=== PATIENT | female | born 1945 | race Caucasian/White ===

== ENCOUNTER 2016-07-31 07:58 | Inpatient (IN) | payer MEDICARE ==
--- NOTE | 2016-07-25 22:18 | HP ---
HISTORY AND PHYSICAL: DATE OF ADMISSION/SURGERY: 07/31/16 PROCEDURE: Right total hip arthroplasty. CHIEF COMPLAINT: Right hip osteoarthritis. HISTORY OF PRESENT ILLNESS: Ms. Quevedo is a 71-year-old female with chronic right hip pain. She can no longer walk more than half a block, standing up from a sitting position is difficult and standing for a prolonged amount of time without severe pain is difficult. Her pain is made mildly better with antiinflammatories and pain pills. She has tried physical therapy, which she failed and she would like to proceed with a right total hip replacement. PAST MEDICAL HISTORY: 1. The patient has a history of COPD. 2. Hypercholesterolemia. 3. Osteoarthritis. 4. Anxiety. 5. Obesity. PAST SURGICAL HISTORY: 1. Cholecystectomy. 2. Arm or elbow surgery. 3. Rotator cuff repair. MEDICATIONS: 1. Pravastatin sodium 10 mg 1 by mouth every day. 2. Omeprazole 1 by mouth every day. 3. Hydrochlorothiazide 12.5 mg. 4. Vitamin D3 Ultra Strength 5000 units 1 by mouth every day. 5. Vitamin B12 1000 mcg 1 by mouth every day. 6. Venlafaxine 75 mg 1 by mouth every day. ALLERGIES: The patient is allergic to SULFA ANTIBIOTICS and TRICOR. FAMILY HISTORY: Maternal mother has cancer and rheumatoid arthritis. Siblings have hypertension. SOCIAL HISTORY: The patient is a former smoker and she smoked for 40 years at 1 - 1/2 packs per day resulting in a [id number]-elny smoking history. She has been off smoking for 12 years now. She lives with her spouse. REVIEW OF SYSTEMS: General: The patient denies any fevers, chills, or night sweats. No known anesthesia problems. HEENT: The patient denies any headache , lightheadedness, or syncopal episodes. Integument: The patient denies any abrasions, lesions, or open wounds. Cardio: The patient denies any hypertension, chest pain, or palpitations. Pulmonary: The patient denies any shortness of breath with exertion, chronic cough, or COPD. GI: The patient denies any nausea, vomiting, diarrhea, or constipation. : The patient denies any nocturia, urinary frequency, urinary urgency, history of UTI's or kidney problems. MSK: The patient complains of right hip pain that extends into her groin and into her thigh. Neuro: The patient denies any paresthesias, numbness, history of seizures, stroke, or epilepsy. Endocrine: The patient denies any diabetes or thyroid issues. Hematologic: The patient denies any bleeding or anemia. PHYSICAL EXAMINATION GENERAL: The patient is awake, alert, and oriented, in no acute distress. Appropriate mood and affect. CARDIAC: Regular rate and rhythm with normal S1 and S2. No appreciable S3, S4. No murmurs, rubs, or gallops. No edema. PULMONARY: Lungs are clear to auscultation in all lung tucker. No wheezes, rales, or rhonchi. ABDOMEN: Positive bowel sounds in all 4 quadrants, was soft and nontender to palpation. MSK: Right lower extremity, the patient's skin is intact. No palpable masses or lymph nodes. Tenderness to palpation along the greater trochanter positive groin pain. Internal rotation and external rotation of the hip reproduced groin pain. She has an antalgic gait. 5/5 ankle dorsiflexion and plantar flexion. Strength: Full sensation to light touch in all nerve distributions with a 2+ dorsalis pedis pulse. LABORATORY DATA: Multiple views of the hip were reviewed today and found to be acceptable for the right total hip arthroplasty, shows severe end-stage osteoarthritis with obliteration of the joint space. ASSESSMENT: Right hip osteoarthritis severe, undergoing a right hip total arthroplasty on 07/31/16. PLAN: The patient is scheduled to undergo a right total hip arthroplasty. She will return to the office in 10 to 14 days postoperative for followup and suture removal. A prescription for Percocet 5/325, warfarin 2 mg, and Colace 100 mg was e- prescribed to the patient's pharmacy for postoperative pain management. EMILIE VERNON [id number]/[facility] #: [id number] LIDIA
[~2016-07-31 07:58] MED LIST: Dexamethasone IV* 4 MG/ML 1 ML (4 MG) IV SLOW PU ONE; Famotidine IV* 10 MG/ML 2 ML (20 mg) IV ONE; Scopolamine 1.5 mg* PATCH TRANSDERM ONE
[2016-07-31] MEDS ORDERED: ceFAZolin 2 GM PREMIX(*) 2 GM/50 ML BAG IVPB ONE (09:39)
[2016-07-31] MEDS ORDERED: Famotidine IV* 10 MG/ML 2 ML (20 mg) ONE (09:39)
[2016-07-31] MEDS ORDERED: Dexamethasone IV* 4 MG/ML 1 ML (4 MG) ONE (09:39)
[2016-07-31] MEDS ORDERED: Scopolamine 1.5 mg* PATCH ONE (09:39)
[2016-07-31] MEDS ORDERED: Buffered Lidocaine 0.9% SYRIN* 5 ML/SYR SYRINGE ONE (10:13)
[2016-07-31] MEDS ORDERED: Bupivacaine 0.5% SDV PF* 30 ML VIAL ONE (11:19)
[2016-07-31] MEDS ORDERED: Morphine PF AMP (0.5MG/ML)* 5 MG/10 ML AMP ONE (11:20)
[2016-07-31] MEDS ORDERED: fentaNYL* 50 MCG/ML 2 ML VIAL (100 MCG VIAL) ONE ×3 (11:20→16:41)
[2016-07-31] MEDS ORDERED: Midazolam* 1 MG/ML 5 ML VIAL (5 MG) ONE (11:20)
[2016-07-31] MEDS ORDERED: oxyCODONE TAB* 5 MG TAB PO PRN ×3 (11:31→15:43)
[2016-07-31] MEDS ORDERED: PROCHLORPERAZINE INJ 5 MG/ML 2 ML VIAL IV PRN (11:31)
[2016-07-31] MEDS ORDERED: fentaNYL* 50 MCG/ML 2 ML VIAL (100 MCG VIAL) IV PRN (11:31)
[2016-07-31] MEDS ORDERED: Acetaminophen IV 1GM/100ML * 100 ML IVPB ONE (11:31)
[2016-07-31] MEDS ORDERED: Rocuronium* 10 MG/ML VIAL ONE (12:42)
[2016-07-31] MEDS ORDERED: EPHEDrine (Pressors)* 50 MG/ML VIAL ONE ×2 (13:19→15:17)
[2016-07-31] MEDS ORDERED: Phenylephrine IV* 40 MCG/ML 10 ML SYRINGE ONE (13:37)
[2016-07-31] MEDS ORDERED: Phenylephrine INJ* 10 MG/ML 1 ML VIAL (10 MG) ONE (13:37)
[2016-07-31] MEDS ORDERED: Lidocaine 2% EPI 1:200000 MPF* 20 ML VIAL ONE (13:55)
[2016-07-31] MEDS ORDERED: Ondansetron INJ* 2 MG/ML VIAL ONE (14:20)
--- NOTE | 2016-07-31 14:47 | RAD ---
HISTORY: Right total hip replacement COMPARISONS: June 23, 2016 VIEWS: 1, portable intraoperative view of the pelvis performed at 1:12 PM FINDINGS: Single portable intraoperative view of the pelvis performed during hip arthroplasty demonstrates a right hip arthroplasty, with temporary femoral sizing component IMPRESSION: LIMITED PORTABLE INTRAOPERATIVE VIEW OF THE PELVIS DURING RIGHT HIP ARTHROPLASTY
[2016-07-31] MEDS ORDERED: Acetaminophen IV 1GM/100ML * 100 ML ONE (15:12)
[2016-07-31] MEDS ORDERED: Ondansetron TAB* 4 MG PO PRN (15:32)
[2016-07-31] MEDS ORDERED: diPHENhydraMINE IV* 50 MG/ML 1 ml VIAL (BENADRYL) IV PRN (15:32)
[2016-07-31] MEDS ORDERED: diPHENhydraMINE PO* 25 MG PO PRN (15:32)
[2016-07-31] MEDS ORDERED: Morphine INJ* 10 MG/ML 1 ML SYRINGE IV PRN (15:32)
[2016-07-31] MEDS ORDERED: Polyethylene Glycol 3350* 17 GM PACKET PO PRN (15:37)
[2016-07-31] MEDS ORDERED: Bisacodyl SUPP* 10 MG SUPP PR PRN (15:37)
[2016-07-31] MEDS ORDERED: Nalbuphine* 20 MG/ML 1 ML VIAL IV PRN (15:43)
[2016-07-31] MEDS ORDERED: Ondansetron INJ* 2 MG/ML VIAL IV PRN (15:43)
[2016-07-31] MEDS ORDERED: Naloxone* 0.4 MG/ML 1 ML VIAL IV PRN (15:43)
[2016-07-31] MEDS ORDERED: Lactated Ringers 500 ml BAG* 500 ML IV PRN (15:46)
[2016-07-31] MEDS ORDERED: EPHEDrine (Pressors)* 50 MG/ML VIAL IV PUSH PRN (15:46)
[2016-07-31] MEDS ORDERED: PROCHLORPERAZINE INJ 5 MG/ML 2 ML VIAL ONE (15:47)
[2016-07-31] MEDS ORDERED: Ropivacaine* 300 MG in NS 0.9% 250 ML* 240 ML EPIDURAL SCH (16:00)
[2016-07-31] MEDS ORDERED: Pravastatin (NF) 20 MG TAB PO SCH (17:00)
[2016-07-31] MEDS ORDERED: Warfarin TAB(*) 6 MG PO ONE (17:00)
--- NOTE | 2016-07-31 17:05 | RAD ---
Indication: Right total hip replacement. 2 views of the right hip demonstrates right hip replacement in satisfactory position. No loosening is noted. IMPRESSION: Right hip replacement in satisfactory position.
--- NOTE | 2016-07-31 18:12 | CONS ---
HOSPITAL MEDICINE CONSULTATION REPORT: DATE OF CONSULT: 07/31/16 ATTENDING PHYSICIAN: Lavern Canales MD. CONSULTING PHYSICIAN: Sage Estrada MD (dictation provided by Lexus Navarro NP ). CHIEF COMPLAINT: Right hip pain, status post right total hip arthroplasty. REASON FOR CONSULTATION: Medical comanagement. HISTORY OF PRESENT ILLNESS: Ms. Quevedo is a 71-year-old female with a past medical history of COPD, high cholesterol and lower extremity edema, who presented to the hospital today for a planned right total hip arthroplasty. Please see the dictated H and P from Dr. Canales for complete details. In brief, the patient had failed medical management and opted for surgical intervention today. Ms. Quevedo states that she was feeling well before coming into the hospital for the surgery. She has had no recent illnesses. She denies any chest pain, shortness of breath, nausea, abdominal pain. Her bowels have been moving normally. PAST MEDICAL HISTORY: 1. History of COPD. 2. Hypercholesterolemia. 3. Osteoarthritis. 4. Anxiety. 5. Obesity. PAST SURGICAL HISTORY: 1. Cholecystectomy. 2. Rotator cuff repair. 3. Arm surgery. MEDICATIONS: Outpatient are: 1. Pravastatin 10 mg daily. 2. Omeprazole 1 tab p.o. daily. 3. Hydrochlorothiazide 12.5 mg p.o. daily. 4. Vitamin D3 5000 units p.o. daily. 5. Vitamin B12 1000 mcg p.o. daily. 6. Venlafaxine 75 mg daily. ALLERGIES: To SULFA ANTIBIOTICS and TRICOR. FAMILY HISTORY: The patient states her mother is alive and well at age 90 and has history of arthritis. Father at 90 of old age. SOCIAL HISTORY: The patient is a former smoker but has quit. She denies any alcohol or drug use. She states her , Chang, would be the healthcare proxy. REVIEW OF SYSTEMS: A 14-point review of systems was completed with Ms. Quevedo and all those not mentioned above are negative. PHYSICAL EXAM: Vital Signs: Temperature 98.4, heart rate 94, respiratory rate 16, O2 saturation 95% on room air, blood pressure 140/79. General: Ms. Quevedo is lying in the bed in the PACU. She is in no acute distress. Neuro: She is alert. She is oriented x3. She moves all extremities equally. There is no facial asymmetry or focal weakness. Extraocular movements are intact. Heart : S1, S2. No murmur, rub, or gallop and regular. Lungs are clear to auscultation bilaterally with no accessory muscle use and good aeration. The abdomen is soft, nontender with bowel sounds positive x4. Extremities: No cyanosis or edema. Skin is intact. Incision on the right hip was not assessed as it is immediately postop. DIAGNOSTIC STUDIES/LAB DATA: Preoperatively, WBC 8.1, hemoglobin 13.4, hematocrit 40, platelet count 233,000. Sodium 137, potassium 4.2, chloride 99, serum bicarbonate 31, BUN 18, creatinine 0.90, glucose 101. ASSESSMENT: Ms. Quevedo is a 71-year-old female with a past medical history of chronic obstructive pulmonary disease, high cholesterol, and anxiety who presents today to the hospital with need for an elective right total hip arthroplasty. Our recommendations are as follows: 1. Right total hip arthroplasty. Management will continue to be per the orthopedic services team. She will have PT and OT. She will have pain medications p.r.n. with the bowel regimen and we will monitor H and H closely. 2. Lower extremity edema. The patient reports being on low dose hydrochlorothiazide chronically for lower extremity edema which she reports has been helpful. Plan to hold that today. It can resumed in the perioperative period if she is taking in adequate oral intake. 3. Gastroesophageal reflux disease. Continue omeprazole. 4. Hypercholesterolemia. The patient can continue atorvastatin as substitute for pravastatin. 5. DVT prophylaxis with Lovenox and warfarin per Ortho. 6. Disposition to surgical floor. TIME SPENT: Approximately 40 minutes were spent on the consultation of this patient, more than half time spent with the patient at the bedside reviewing the events leading up to this hospitalization, performing the physical examination, and reviewing my plan of care. LEXUS NAVARRO NP [id number]/[facility] #: [id number] LIDIA
[2016-07-31] MEDS: Magnesium Hydroxide LIQ* 30 ML UDC PO SCH (21:19)
[2016-07-31] MEDS: ceFAZolin VIAL(*) 1 GM in NS 0.9% 50 ML* 50 ML IVPB SCH (21:20)
[2016-07-31] MEDS: Docusate CAP* 100 MG PO SCH (21:20)
[2016-07-31] MEDS: Acetaminophen TAB* 325 MG PO SCH (23:47)
[2016-08-01] MEDS: ceFAZolin VIAL(*) 1 GM in NS 0.9% 50 ML* 50 ML IVPB SCH ×2 (05:12→12:14)
--- NOTE | 2016-08-01 05:43 | OP ---
OPERATIVE REPORT: DATE OF OPERATION: 07/31/16 DATE OF : 47 SURGEON: Lavern Canales MD PRODUCTION MINER: EMILIE Belcher Ms. Olmedo did help throughout the procedure with preparation of the leg, wound retraction, manipulation of the hip, and wound closure. ANESTHESIOLOGIST: Dr. Gonzalez. ANESTHESIA: Spinal with general. 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 OPERATIVE PROCEDURE: Right total hip arthroplasty. INDICATIONS: Ms. Quevedo is a 71-year-old female with years of increasing severe right hip pain. She failed conservative treatment with antiinflammatories, pain medications, ambulatory assistive devices, and physical therapy. Radiographs confirmed severe arthritis with near protrusio. CT scan confirmed this. She elected to undergo right total hip arthroplasty due to continued pain and decreased quality of life. Informed consent was obtained from the patient. She understood the risks of procedure included, but were not limited to, bleeding, infection, damage to nearby structures, continued pain, need for further surgery, intraoperative fracture, nerve palsy, hardware failure or loosening, dislocation, leg length discrepancy, stroke, heart attack, blood clot, and . She wished to proceed. COMPLICATIONS: None. ESTIMATED BLOOD LOSS: 250 cc. SPECIMEN: Femoral head and acetabular reaming sent to Pathology. HARDWARE USED: This is uncemented Gris total hip hardware. For the acetabulum, a Trident hemispherical multi-hole acetabular shell, 52E. One 20- mm and one 16-mm bone screw were used. An MDM liner cementless 42E was chosen. For the femoral stem, an Accolade TMZF size 2 with a 127-degree neck. For the head, a Biolox delta ceramic V40 28 -4 head. A 28/48/42E Worship MDM X3 insert was used. INTRAOPERATIVE FINDINGS: Intraoperatively, the patient was noted to have sclerosis and bone loss around the entire acetabulum with anterior and inferior osteophyte formation. She had sclerotic bone with extensive bone loss. DESCRIPTION OF PROCEDURE: Ms. Quevedo was identified in the preanesthesia unit. Her right lower extremity was marked as the correct operative side. Informed consent was signed and placed in the chart. The patient was taken to the operating room and placed under spinal anesthesia. She then had general anesthesia placed. Pelayo catheter was placed. The patient was placed in the left lateral decubitus position on the peg board. All bony prominences were well padded. The right lower extremity was prepped and draped in the usual sterile fashion. Preop time-out was made to correctly identify the patient side and site. Appropriate preoperative antibiotics were given within 1 hour of incision. A 15-cm posterior hip incision was made with a 10-blade. Electrocautery was used to dissect down through 8 cm of subcutaneous fat. Lateral fascial layer was identified. A new 10 blade was used to incise the lateral fascial layer in line with the skin incision. A Charnley retractor was placed. The piriformis and conjoint tendons were identified. These were elevated off the posterolateral femur using electrocautery and tagged with two #5 Ethibond's. Next, electrocautery was used to make a standard posterolateral capsular flap and this was also tagged with two #5 Ethibond's. The hip was carefully dislocated. Lesser troch to the center of the femoral neck measured approximately 45 mm. Oscillating saw was used to make the appropriate femoral neck cut. The femur was carefully retracted anteriorly. After appropriate placement of retractor, the acetabulum was well visualized. A long-handled knife was used to sharply remove any remaining labrum from the acetabular rim. The acetabulum had significant bone loss and was sclerotic. The acetabulum was carefully sequentially reamed up to a size 51. Bleeding bone bed was obtained. There was an anterior superior subchondral cyst. A curette was used to remove the cystic tissue and this was packed with femoral head autograft. A 51 trial had good fit. A Trident 52E multi-hole shell was chosen. This was impacted into the acetabulum. This had excellent stability as well as appropriate anteversion and abduction angle. Two screws were placed in the superior posterior quadrant for extra stability. These were length 16 and 20. A cementless MDM liner 43 was chosen and impacted into the acetabular cup without difficulty. The stability of the liner was checked and rechecked and noted to be stable. Attention was next turned to preparation of the femur. A canal finder was used to enter the proximal femur. The proximal femur was sequentially broached up to a size 2. The size 2 broach had good fit. A trial 127-degree neck was chosen as well as a 28 -4 head with the 28/48/42E liner. These trials were placed. The hip was reduced and taken through a range of motion. The hip was stable in all positions. There was appropriate soft tissue tension and leg length. The hip was carefully dislocated. All trials were carefully removed. Final implant chosen was an Accolade TMZF size 2 with a 127-degree neck. This was impacted into the femoral canal without difficulty. There was satisfactory stability as well as anteversion. A 28 -4 head trial was chosen. Lesser troch to the center of the femoral head measured 50 mm, which was appropriate for preop templating. Therefore, the 28 - 4 ceramic V40 femoral head was chosen along with the 28/48/42E liner insert for the MDM. This was impacted onto the femoral neck without difficulty. The hip was reduced and taken through a range of motion. The hip was stable in all positions. The hip was copiously irrigated with sterile saline. The previously tagged tendons and capsules were reapproximated to the posterolateral femur through 2 trochanteric drill holes. The hip was once again copiously irrigated with sterile saline. The lateral fascial layer was closed using interrupted #1 Vicryl's. The rest of the incision was closed in a layered fashion using 0 and 2-0 Vicryl's. Skin was closed using running 3-0 Monocryl and Dermabond. The patient's anesthesia was reversed without difficulty. She was taken to the PACU in stable condition. Intended weightbearing will be weightbearing as tolerated with posterior hip precaution. Intended DVT prophylaxis will be Coumadin with a Lovenox bridge. [id number]/[facility] #: [id number] [facility] CENTERKaryn
[2016-08-01 07:21] LABS: Hematocrit 33 % (35-47); Hemoglobin 10.8 g/dl (12.0-16.0)
[2016-08-01 07:34] LABS: BUN/Creatinine Ratio 16.9 (8-20); EGFR African American 95.3 (>60); EGFR Non-African American 74.1 (>60); Potassium 4.2 mmol/L (3.5-5.0)
[2016-08-01] MEDS: Acetaminophen TAB* 325 MG PO SCH (07:35)
[2016-08-01] MEDS: Omeprazole CAP* 20 MG PO SCH (07:36)
--- NOTE | 2016-08-01 07:37 | PN ---
Progress Note - Progress Note SOAP: Subjective: Pt. is doing well, pain controlled. Objective: RLE - thigh swollen but soft, distally no edema. +df/pf, full sens lt, 2+ dp pulse. Vital Signs: Temp Pulse Resp BP Pulse Ox 97.9 F 80 16 128/61 98 08/01/16 03:22 08/01/16 03:22 08/01/16 05:11 08/01/16 03:22 08/01/16 05:54 Laboratory Results - last 24 hr 08/01/16 08/01/16 08/01/16 06:22 06:22 06:22 Hgb 10.8 L Hct 33 L INR (Anticoag Therapy) 1.01 Sodium 137 Potassium 4.2 Chloride 101 Carbon Dioxide 30 Anion Gap 6 BUN 13 Creatinine 0.77 Est GFR ( Amer) 95.3 Est GFR (Non-Af Amer) 74.1 BUN/Creatinine Ratio 16.9 Glucose 119 H Calcium 9.0 Assessment: 71 yo F pod 1 s/p RTHA Plan: wbat with post hip precautions pt/ot 8 mg coumadin tonight with lovenox today plan d/c to home 08/02
[2016-08-01] MEDS: Morphine INJ* 10 MG/ML 1 ML SYRINGE IV PRN ×3 (07:39→15:34)
[2016-08-01] MEDS ORDERED: Ondansetron INJ* 2 MG/ML VIAL IV PRN (07:44)
[2016-08-01] MEDS ORDERED: oxyCODONE/Acetamin 5/325 MG* TAB PO PRN (07:44)
[2016-08-01] MEDS ORDERED: oxyCODONE TAB* 5 MG TAB PO PRN (07:44)
[2016-08-01] MEDS ORDERED: Ondansetron TAB* 4 MG PO PRN (07:44)
[2016-08-01] MEDS ORDERED: Pravastatin (NF) 10 MG TAB PO SCH (09:00)
[2016-08-01] MEDS: Docusate CAP* 100 MG PO SCH ×2 (09:24→20:27)
[2016-08-01] MEDS: Cholecalciferol TAB* 1000 UNITS PO SCH (09:24)
[2016-08-01] MEDS: Hydrochlorothiazide TAB* 25 MG PO SCH (09:24)
[2016-08-01] MEDS: Venlafaxine EXT RELEASE CAP* 75 MG PO SCH (09:24)
[2016-08-01] MEDS: Magnesium Hydroxide LIQ* 30 ML UDC PO SCH ×2 (09:25→20:27)
[2016-08-01] MEDS: oxyCODONE/Acetamin 5/325 MG* TAB PO PRN ×4 (09:25→20:27)
[2016-08-01] MEDS: CMC: Pravastatin (NF) 20 MG TAB PO SCH (10:04)
[2016-08-01] MEDS ORDERED: NS 0.9% 50 ML* 50 ML ONE (12:10)
--- NOTE | 2016-08-01 14:41 | PN ---
Subjective Date of Service: 08/01/16 Interval History: Ms. Quevedo reports pain to her right hip but denies other complaint including chest pain, SOB, nausea, or abdominal pain. Objective Active Medications: Acetaminophen (Tylenol Tab*) 975 mg PO Q8H IRMA Acetaminophen (Tylenol Tab*) 650 mg PO Q4H PRN Bisacodyl (Dulcolax Supp*) 10 mg MS DAILY PRN Cholecalciferol (Vitamin D Tab*) 1,000 units PO QAM IRMA Diphenhydramine HCl (Benadryl Iv*) 12.5 mg IV Q6H PRN Diphenhydramine HCl (Benadryl Po*) 25 mg PO Q6HR PRN Docusate Sodium (Colace Cap*) 100 mg PO BID IRMA Enoxaparin Sodium (Lovenox(*)) 30 mg SUBCUT Q24H IRMA Hydrochlorothiazide (Hydrodiuril Tab*) 12.5 mg PO QAM IRMA Lactated Ringer's (Lactated Ringers 1000 Ml Bag*) 1,000 mls @ 100 mls/hr IV PER RATE IRMA Lactulose (Lactulose*) 30 ml PO Q6H PRN Magnesium Hydroxide (Milk Of Magnesia Liq*) 30 ml PO BID IRMA Morphine Sulfate (Morphine Inj (Syringe)*) 5 mg IV Q2HR PRN Omeprazole (Prilosec Cap*) 20 mg PO 0730 IRMA Ondansetron HCl (Zofran Inj*) 4 mg IV Q6HR PRN Ondansetron HCl (Zofran Tab*) 4 mg PO Q6HR PRN Oxycodone HCl (Roxycodone Tab*) 10 mg PO Q4HR PRN Oxycodone/Acetaminophen (Percocet 5/325 Tab*) 1 tab PO Q3H PRN Oxycodone/Acetaminophen (Percocet 5/325 Tab*) 2 tab PO Q3H PRN Pharmacy Profile Note (Scopolomine Patch Remove*) 1 note PATCH OFF Q72H ONE Polyethylene Glycol/Electrolytes (Miralax*) 17 gm PO DAILY PRN Pravastatin Sodium (Pravachol (Nf)) 10 mg PO 0900 IRMA Venlafaxine HCl (Effexor Xr Cap*) 75 mg PO QAM IRMA Warfarin Sodium (Coumadin Tab(*)) 8 mg PO ONCE@1700 ONE Vital Signs 07/31/16 07/31/16 07/31/16 15:33 15:35 15:40 Temperature 97.5 F Pulse Rate 82 78 80 Respiratory 18 18 14 Rate Blood Pressure 106/48 113/49 111/57 (mmHg) O2 Sat by Pulse 98 98 97 Oximetry 07/31/16 07/31/16 07/31/16 15:45 16:00 16:15 Temperature Pulse Rate 78 85 87 Respiratory 16 16 16 Rate Blood Pressure 121/77 110/53 114/62 (mmHg) O2 Sat by Pulse 97 98 98 Oximetry 07/31/16 07/31/16 07/31/16 16:30 16:35 16:41 Temperature Pulse Rate 87 90 Respiratory 17 15 15 Rate Blood Pressure 108/61 111/58 (mmHg) O2 Sat by Pulse 99 100 Oximetry 07/31/16 07/31/16 07/31/16 16:45 17:00 17:07 Temperature 98.4 F Pulse Rate 87 94 Respiratory 15 16 Rate Blood Pressure 117/58 134/64 (mmHg) O2 Sat by Pulse 95 99 100 Oximetry 07/31/16 07/31/16 07/31/16 17:15 17:27 17:37 Temperature 96.8 F 97.8 F Pulse Rate 93 92 92 Respiratory 15 16 16 Rate Blood Pressure 134/64 124/63 109/67 (mmHg) O2 Sat by Pulse 98 96 94 Oximetry 07/31/16 07/31/16 07/31/16 17:51 17:53 18:58 Temperature 97.8 F 97.4 F Pulse Rate 92 92 Respiratory 18 16 18 Rate Blood Pressure 109/67 110/58 (mmHg) O2 Sat by Pulse 94 99 Oximetry 07/31/16 07/31/16 07/31/16 19:49 19:52 20:00 Temperature 98.3 F Pulse Rate 134 91 Respiratory 14 16 Rate Blood Pressure 104/56 (mmHg) O2 Sat by Pulse 85 100 Oximetry 07/31/16 07/31/16 08/01/16 21:54 23:50 00:00 Temperature 97.8 F 98.6 F Pulse Rate 91 97 Respiratory 14 16 Rate Blood Pressure 106/49 120/63 (mmHg) O2 Sat by Pulse 95 97 97 Oximetry 08/01/16 08/01/16 08/01/16 03:22 05:11 05:54 Temperature 97.9 F Pulse Rate 80 Respiratory 16 16 Rate Blood Pressure 128/61 (mmHg) O2 Sat by Pulse 98 98 Oximetry 08/01/16 08/01/16 08/01/16 07:11 07:39 07:44 Temperature Pulse Rate Respiratory 16 16 16 Rate Blood Pressure (mmHg) O2 Sat by Pulse 98 Oximetry 08/01/16 08/01/16 08/01/16 07:46 08:11 08:39 Temperature 99.2 F Pulse Rate 81 92 Respiratory 15 16 Rate Blood Pressure 142/47 (mmHg) O2 Sat by Pulse 98 Oximetry 08/01/16 08/01/16 08/01/16 09:25 11:25 11:43 Temperature 98.4 F Pulse Rate 85 Respiratory 16 18 13 Rate Blood Pressure 149/52 (mmHg) O2 Sat by Pulse 98 Oximetry 08/01/16 08/01/16 08/01/16 12:14 13:14 13:49 Temperature Pulse Rate Respiratory 18 18 18 Rate Blood Pressure (mmHg) O2 Sat by Pulse Oximetry Oxygen Devices in Use Now: None Appearance: Female lying in bed in NAD Eyes: No Scleral Icterus Ears/Nose/Mouth/Throat: Mucous Membranes Moist Neck: Trachea Midline Respiratory: Symmetrical Chest Expansion and Respiratory Effort, Clear to Auscultation Cardiovascular: NL Sounds; No Murmurs; No JVD, No Edema Abdominal: NL Sounds; No Tenderness; No Distention Lymphatic: No Cervical Adenopathy Extremities: No Edema Skin: No Rash or Ulcers Neurological: Alert and Oriented x 3, NL Muscle Strength and Tone Result Diagrams: 08/01/16 06:22 08/01/16 06:22 Assess/Plan/Problems-Billing Assessment: Ms. Quevedo is a 71 yo female with a PMH of GERD and mild COPD who was admitted on 07/31/16 for an elective right total hip arthroplasty. - Patient Problems (1) S/P hip replacement Comment: Management per ortho. Pain meds prn with bowel regimen. PT/OT. Monitor H/H. (2) COPD (chronic obstructive pulmonary disease) Comment: No evidence of exacerbation. Not on any home meds. (3) GERD (gastroesophageal reflux disease) Comment: Continue omeprazole. (4) DVT prophylaxis Comment: Lovenox with warfarin. (5) Full code status Status and Disposition: Inpatient with disposition per ortho. Hospital Medicine will sign off for now, but please do not hesitate to contact us with any questions or concerns.
[2016-08-01] MEDS ORDERED: Acetaminophen TAB* 325 MG PO PRN (16:00)
[2016-08-01] MEDS: Enoxaparin(*) 30 MG/0.3 ML SYR SUBCUT SCH (16:50)
[2016-08-01] MEDS ORDERED: Warfarin TAB(*) 4 MG PO ONE (17:00)
[2016-08-02] MEDS: diPHENhydraMINE PO* 25 MG PO PRN ×2 (00:19→07:46)
[2016-08-02] MEDS: oxyCODONE/Acetamin 5/325 MG* TAB PO PRN (04:21)
[2016-08-02 07:24] LABS: Hematocrit 33 % (35-47); Hemoglobin 10.8 g/dl (12.0-16.0); Mean Platelet Volume 9 um3 (7.4-10.4)
[2016-08-02 07:39] VITALS: BP 152/72
[2016-08-02] MEDS: Omeprazole CAP* 20 MG PO SCH (07:41)
--- NOTE | 2016-08-02 08:27 | PN ---
Progress Note - Progress Note SOAP: Subjective: 71 y/o female s/p R GIANNA by Dr. Canales 07/31/2016. patient reports feeling well, working well with PT, pain well controlled, ready for DC. afebrile overnight, VSS. Objective: General- SIting up in bed, NAD AO MSK- + DF/PF, sensation grossly intact b/l LE, neg homans b/l, incision c/d/i, no erythema, drainage noted Vital Signs Temp 98.8 F 08/02/16 07:23 Pulse 108 08/02/16 07:23 Resp 18 08/02/16 08:00 BP 152/72 08/02/16 07:23 Pulse Ox 92 08/02/16 08:00 Intake & Output 08/01/16 08/02/16 08/02/16 18:59 06:59 18:59 Intake Total 842 500 Output Total 700 425 Balance 142 75 Intake: IVPB 722 ABX - CEFAZOLIN 64 LR 658 Oral 120 500 Output: Urine 425 Pelayo 700 Other: Estimated Void Small Small # Voids 1 Laboratory Results - last 24 hr 08/02/16 08/02/16 07:06 07:06 Hgb 10.8 L Hct 33 L Plt Count 233 MPV 9 INR (Anticoag Therapy) 1.70 H Assessment: 71 y/o female s/p R GIANNA by Dr. Canales 07/31/2016. Plan: - DVT prophylaxis- Lovenox today and coumadin 4mg ight, 4mg thursday night, INR draw Thursday - D/C today to home - Follow up with DR. Canales within 10 days - COntinue current pain regimen - COntinue PT Active Medications Generic Name Dose Route Start Last Admin Trade Name Freq PRN Reason Stop Dose Admin Acetaminophen 650 mg 08/01/16 16:00 08/02/16 07:46 Tylenol Tab* PO 650 mg Q4H PRN Administration mild pain or fever Bisacodyl 10 mg 07/31/16 15:37 Dulcolax Supp* IA DAILY PRN constipation Cholecalciferol 1,000 units 08/01/16 09:00 08/01/16 09:24 Vitamin D Tab* PO 1,000 units QAM IRMA Administration Diphenhydramine HCl 12.5 mg 07/31/16 15:32 Benadryl Iv* IV Q6H PRN PRURITIS Diphenhydramine HCl 25 mg 08/01/16 08:00 08/02/16 07:46 Benadryl Po* PO 25 mg Q6HR PRN Administration insomnia Docusate Sodium 100 mg 07/31/16 21:00 08/01/16 20:27 Colace Cap* PO 100 mg BID IRMA Administration Enoxaparin Sodium 30 mg 08/01/16 16:00 08/01/16 16:50 Lovenox(*) SUBCUT 30 mg Q24H IRMA Administration Hydrochlorothiazide 12.5 mg 08/01/16 09:00 08/01/16 09:24 Hydrodiuril Tab* PO 12.5 mg QAM IRMA Administration Lactated Ringer's 1,000 mls @ 100 mls/hr 07/31/16 16:00 08/01/16 03:27 Lactated Ringers 1000 Ml Bag* IV 100 mls/hr PER RATE IRMA Administration Lactulose 30 ml 07/31/16 15:37 Lactulose* PO Q6H PRN constipation Magnesium Hydroxide 30 ml 07/31/16 21:00 08/01/16 20:27 Milk Of Magnesia Liq* PO 30 ml BID IRMA Administration Morphine Sulfate 5 mg 08/01/16 07:44 08/01/16 15:34 Morphine Inj (Syringe)* IV 5 mg Q2HR PRN Administration PAIN Omeprazole 20 mg 08/01/16 07:30 08/02/16 07:41 Prilosec Cap* PO 20 mg 0730 IRMA Administration Ondansetron HCl 4 mg 08/01/16 07:44 Zofran Inj* IV Q6HR PRN NAUSEA Ondansetron HCl 4 mg 08/01/16 07:44 Zofran Tab* PO Q6HR PRN NAUSEA Oxycodone HCl 10 mg 08/01/16 07:44 08/02/16 00:15 Roxycodone Tab* PO 10 mg Q4HR PRN Administration BREAKTHRU PAIN Oxycodone/Acetaminophen 1 tab 08/01/16 07:44 Percocet 5/325 Tab* PO Q3H PRN PAIN - MODERATE Oxycodone/Acetaminophen 2 tab 08/01/16 07:44 08/02/16 04:21 Percocet 5/325 Tab* PO 2 tab Q3H PRN Administration PAIN - MODERATE TO SEVERE Pharmacy Profile Note 1 note 08/03/16 10:30 Scopolomine Patch Remove* PATCH OFF 08/03/16 10:31 Q72H ONE Polyethylene Glycol/Electrolytes 17 gm 07/31/16 15:37 Miralax* PO DAILY PRN Constipation Pravastatin Sodium 10 mg 08/01/16 10:00 08/01/16 10:04 Pravachol (Nf) PO 10 mg 0900 IRMA Administration Venlafaxine HCl 75 mg 08/01/16 09:00 08/01/16 09:24 Effexor Xr Cap* PO 75 mg QAM IRMA Administration
[2016-08-02] MEDS: Magnesium Hydroxide LIQ* 30 ML UDC PO SCH (08:36)
[2016-08-02] MEDS: CMC: Pravastatin (NF) 20 MG TAB PO SCH (08:36)
[2016-08-02] MEDS: Venlafaxine EXT RELEASE CAP* 75 MG PO SCH (08:36)
[2016-08-02] MEDS: Hydrochlorothiazide TAB* 25 MG PO SCH (08:36)
[2016-08-02] MEDS: Cholecalciferol TAB* 1000 UNITS PO SCH (08:36)
[2016-08-02] MEDS: Enoxaparin(*) 30 MG/0.3 ML SYR SUBCUT SCH (08:37)
[2016-08-02] MEDS: Docusate CAP* 100 MG PO SCH (08:37)
--- NOTE | 2016-08-02 11:21 | DS ---
DISCHARGE SUMMARY: DATE OF ADMISSION: 07/31/16 DATE OF DISCHARGE: 08/02/16 CHIEF COMPLAINT: 1. Right hip osteoarthritis. 2. COPD. 3. History of elevated cholesterol. 4. Generalized arthritis. 5. Anxiety. 6. Obesity. DISCHARGE DIAGNOSES: 1. Status post right total hip arthroplasty. 2. Chronic obstructive pulmonary disease. 3. Elevated cholesterol. 4. Generalized osteoarthritis. 5. Anxiety. 6. Obesity. PROCEDURE: Right total hip arthroplasty. CONSULTATIONS: 1. Physical Therapy. 2. Occupational Therapy. 3. Medicine. BRIEF HISTORY: Ms. Quevedo is a very pleasant 71-year-old female with severe end- stage degenerative osteoarthritis of the right hip, who failed conservative treatment and elected to undergo right total hip arthroplasty on by Dr. Lavern Canales. HOSPITAL COURSE: Ms. Quevedo was admitted to [facility] on 07/31/16 , where she underwent a right total hip arthroplasty. Postoperatively, she recovered in the Surgical Short-Stay Unit. Her Pelayo was removed on postoperative day 2 and she was voiding on her own without difficulty. She advanced to a regular diet and her pain was controlled well with p.o. Percocet. She was restarted on her home medications. Her labs and vital signs remained stable. She was able to bear weight as tolerated on the right lower extremity and advanced appropriately with physical therapy and occupational therapy. Her DVT prophylaxis was managed with Lovenox and Coumadin until she reached a therapeutic INR. By postoperative day 3, she was orthopedically and medically stable for discharge to go home with home services. PHYSICAL EXAMINATION: General: Well-appearing, in no acute distress, alert and oriented. Vital signs on the date of discharge: Temperature 98.8, pulse 108, respirations 18, blood pressure 152/72, and pulse oxygenation 92% on room air. Examination of the right lower extremity shows positive dorsiflexion and plantarflexion bilaterally. Sensation intact in bilateral lower extremities. Negative Homans sign bilaterally. Incision was clean, dry, and intact. No erythema or drainage noted. DIAGNOSTIC STUDIES/LAB DATA: Laboratory data on the date of discharge, H and H of 10.8 and 33, with an INR of 1.70. DISCHARGE MEDICATIONS: 1. Tylenol 325 to 650 mg p.o. q.4 hours p.r.n. 2. Vitamin B 1000 International Units daily q.a.m. 3. Hydrochlorothiazide 12.5 mg p.o. q.a.m. 4. Omeprazole 20 mg p.o. q.a.m. 5. Pravastatin 10 mg 1 tablet p.o. daily. 6. Effexor 75 mg p.o. daily. 7. Oxycodone/acetaminophen 5/325 mg 1 to 2 tablets every 3 hours as needed for pain p.r.n. 8. Vitamin B12 2500 mg sublingually daily. 9. Coumadin 2 mg tablets 1 to 2 tablets as directed by physician daily at 5 p.m. CONDITION ON DISCHARGE: Stable. DISCHARGE INSTRUCTIONS: Ms. Quevedo is a very pleasant 71-year-old female, postoperative day 2 status post right total hip arthroplasty, which was uncomplicated. She is orthopedically and medically stable for discharge to go home with home services. Her labs and vital signs are stable. She will restart her home medications. She will take 4 mg of Coumadin tonight, 4 mg on Thursday, and will have a repeat INR check on Thursday. She will have INR draws on Mondays and with visiting home nurse services. She will remain weightbearing as tolerated on the right lower extremity. She will have home physical therapy twice a week and take Percocet as needed for pain control. She will take Colace up to 3 times a day for constipation. She will follow up with Dr. Canales in approximately 10 days for incision check and suture removal. She was instructed to go immediately to the ER should she develop chest pain or shortness of breath. Should she develop fever, increasing pain, or redness, she is to call the office immediately. EMILIE BAILEY [id number]/[facility] #: [id number] MTDKaryn
[2016-08-03] MEDS ORDERED: Scopolomine PATCH Remove* 1 NOTE MISC PATCH OFF ONE (10:30)
== END 2016-08-02 11:00 | disposition home health service (06) | DRG 470 ==
LOC: AA 09:47 → SSU 15:32
PROVIDERS: ADMIT Orthopaedic Surgery Adult Reconstructive Orthopaedic Surgery; ATTEND Orthopaedic Surgery Adult Reconstructive Orthopaedic Surgery
PROC: 0SR902A Replacement of Right Hip Joint with Metal on Polyethylene Synthetic Substitute, Uncemented, Open Approach (ICD-10-PCS; principal; 2016-07-31 13:00)
DX: M16.11 Unilateral primary osteoarthritis, right hip (principal); J44.9 Chronic obstructive pulmonary disease, unspecified; F41.9 Anxiety disorder, unspecified; E66.9 Obesity, unspecified; E78.00 Pure hypercholesterolemia, unspecified; K21.9 Gastro-esophageal reflux disease without esophagitis; Z79.899 Other long term (current) drug therapy; Z68.36 Body mass index [BMI] 36.0-36.9, adult; Z88.2 Allergy status to sulfonamides; Z88.8 Allergy status to other drugs, medicaments and biological substances; Z80.9 Family history of malignant neoplasm, unspecified; Z82.61 Family history of arthritis; Z82.49 Family history of ischemic heart disease and other diseases of the circulatory system; Z87.891 Personal history of nicotine dependence; M25.751 Osteophyte, right hip
CPT/HCPCS: 36415; 72170; 80048; 85014; 85018; 85049; 85610; 94760; A9270-GY; J0690; J0780; J1100; J1650; J2250; J2270; J2405; J2795; J3010

== ENCOUNTER 2018-02-02 07:42 | Emergency (ER) | payer MEDICARE ==
[2018-02-02 08:03] VITALS: BP 156/71
--- NOTE | 2018-02-02 08:34 | UC ---
Eye Complaint HPI - HPI Summary HPI Summary: right eye redness x 1 day yellow discharge, crusty , no change in vision , no photophobia no cold sx, no fever - History of Current Complaint Chief Complaint: UCEye Stated Complaint: RIGHT EYE COMPLAINT Time Seen by Provider: 02/02/18 07:53 Hx Obtained From: Patient Onset/Duration: Gradual Onset, Lasting Days - 1, Still Present Timing: Constant Severity Currently: Moderate Pain Intensity: 0 Pain Scale Used: 0-10 Numeric Location of Injury: Conjunctiva - right side Aggravating Factor(s): Nothing Alleviating Factor(s): Nothing Associated Signs And Symptoms: Positive: Drainage (Clear), Drainage (Purulent). Negative: Photophobia, Vision Impairment Bilateral, Vision Impairment Right, Vision Impairment Left, Fever, Swelling - Allergies/Home Medications Allergies/Adverse Reactions: Allergies Allergy/AdvReac Type Severity Reaction Status Date / Time metoprolol Allergy Hives Verified 02/02/18 07:55 Sulfa (Sulfonamide Allergy Hives Verified 02/02/18 07:55 Antibiotics) PLASTIC BANDAIDS Allergy Intermediate Rash And Uncoded 07/25/16 10:17 Itching Home Medications: Home Medications Cholecalciferol TAB* [Vitamin D TAB*] 1,000 unit PO DAILY 02/02/18 [History Confirmed 02/02/18] Cyanocobalamin TAB* [Vitamin B12 TAB*] 1,000 mcg PO DAILY 02/02/18 [History Confirmed 02/02/18] Multivit-Min/Folic Acid/Biotin [Hair, Skin and Nails Caplet] 3 each PO DAILY 01/10 [History Confirmed 02/02/18] PMH/Surg Hx/FS Hx/Imm Hx Respiratory History: Asthma - Surgical History Surgical History: Yes Surgery Procedure, Year, and Place: GALLBLADDER REMOVAL. NERVE FIXED IN LEFT ELBOW. RIGHT SHOULDER ROTATOR CUFF SURGERY. R hip - Family History Known Family History: Negative: Diabetes - Social History Alcohol Use: None Substance Use Type: None Smoking Status (MU): Former Smoker Type: Cigarettes Amount Used/How Often: 1 1/2 PPD FOR 40 YRS Length of Time of Smoking/Using Tobacco: 40 YRS Have You Smoked in the Last Year: No When Did the Patient Quit Smoking/Using Tobacco: 2005 - Immunization History Most Recent Influenza Vaccination: 2016 Most Recent Pneumonia Vaccination: 2016 Review of Systems All Other Systems Reviewed And Are Negative: Yes Constitutional: Positive: Negative Skin: Positive: Negative Eyes: Positive: Drainage, Eye Redness - right eye ENT: Positive: Negative Respiratory: Positive: Negative Cardiovascular: Positive: Negative Gastrointestinal: Positive: Negative Genitourinary: Positive: Negative Is Patient Immunocompromised?: No Physical Exam Triage Information Reviewed: Yes Appearance: Well-Appearing, No Pain Distress, Well-Nourished Vital Signs: Initial Vital Signs Temp 97.7 F 02/02/18 08:00 Pulse 83 02/02/18 08:00 Resp 18 02/02/18 08:00 BP 156/71 02/02/18 08:00 Pulse Ox 99 02/02/18 08:00 Vital Signs Reviewed: Yes Eyes: Positive: Conjunctiva Inflamed - right eye, Discharge - clear discharge right eye ENT: Positive: Normal ENT inspection, Hearing grossly normal, Pharynx normal Neck exam: Normal Neck: Positive: Supple, Nontender, No Lymphadenopathy Respiratory: Positive: Chest non-tender, Lungs clear, Normal breath sounds Cardiovascular: Positive: RRR, No Murmur, Pulses Normal Skin Exam: Normal Eye Complaint Course/Dx - Differential Dx/Diagnosis Provider Diagnosis: Conjunctivitis Discharge - Sign-Out/Discharge Documenting (check all that apply): Patient Departure All imaging exams completed and their final reports reviewed: No Studies - Discharge Plan Condition: Stable Disposition: HOME Prescriptions: Tobramycin 0.3% OPHTH.CARMEN* 1 drop RIGHT EYE Q4H #1 btl Patient Education Materials: Conjunctivitis (ED) Referrals: Juan Blum MD [Primary Care Provider] - 7 Days - Billing Disposition and Condition Condition: STABLE Disposition: Home
== END 2018-02-02 08:26 | disposition home or self-care (01) ==
LOC: UCCORT 07:42
DX: H10.9 Unspecified conjunctivitis (principal); Z88.2 Allergy status to sulfonamides; Z88.8 Allergy status to other drugs, medicaments and biological substances; Z87.891 Personal history of nicotine dependence
CPT/HCPCS: 99212; G0463

== ENCOUNTER 2018-02-27 15:08 | Emergency (ER) | payer MEDICARE ==
[2018-02-27 15:25] VITALS: BP 154/96
[2018-02-27] MEDS ORDERED: Albuterol/Ipratropium NEB.SOL* Albuterol 2.5 MG/Ipratropium 0.5 MG 3 ML INH ONE (15:35)
[2018-02-27] MEDS ORDERED: Ondansetron ODT TAB* 4 MG PO ONE (15:35)
[2018-02-27] MEDS ORDERED: methylPREDNISolone 125 MG* 2 ML VIAL IM ONE (15:44)
--- NOTE | 2018-02-27 15:44 | UC ---
Shortness of Breath HPI - HPI Summary HPI Summary: C/O shortness of breath starting at 2 PM. Started on Keflex yesterday for parotiditis. This morning started with vomiting, and then diarrhea. Still nauseated and last diarrhea at 1 PM. No skin rash or tightening of the throat. - History of Current Complaint Chief Complaint: UCAllergicReaction Stated Complaint: DIZZINESS,SHAKEY,VOMITING,LABORED BREATHING Time Seen by Provider: 02/27/18 15:31 Hx Obtained From: Patient Onset/Duration: Sudden Onset, Lasting Hours - 02/24 Current Severity: Severe Dyspnea At: Rest Aggrevating Factors: Nothing Alleviating Factors: Nothing Associated Signs & Symptoms: Positive: Wheezing. Negative: Cough (Productive), Cough (Nonproductive), Cough (Bloody Sputum), Fever, Chills, Diaphoresis, Nasal Congestion Related History: Obesity - Allergy/Home Medications Allergies/Adverse Reactions: Allergies Allergy/AdvReac Type Severity Reaction Status Date / Time metoprolol Allergy Hives Verified 02/27/18 15:21 Sulfa (Sulfonamide Allergy Hives Verified 02/27/18 15:21 Antibiotics) PLASTIC BANDAIDS Allergy Intermediate Rash And Uncoded 02/27/18 15:21 Itching Home Medications: Home Medications Umeclidin/Vilant 62.5 MDI(NF) [ANORO 62.5/25 Ellipta DEVICE (NF)] 1 inh INH DAILY 02/27/18 [History Confirmed 02/27/18] PMH/Surg Hx/FS Hx/Imm Hx Cardiovascular History: Hypertension Respiratory History: COPD - Surgical History Surgical History: Yes Surgery Procedure, Year, and Place: GALLBLADDER REMOVAL. NERVE FIXED IN LEFT ELBOW. RIGHT SHOULDER ROTATOR CUFF SURGERY. R hip - Family History Known Family History: Positive: Hypertension Negative: Diabetes - Social History Alcohol Use: None Substance Use Type: None Smoking Status (MU): Former Smoker Type: Cigarettes Amount Used/How Often: 1 1/2 PPD FOR 40 YRS Length of Time of Smoking/Using Tobacco: 40 YRS Have You Smoked in the Last Year: No When Did the Patient Quit Smoking/Using Tobacco: 2004 - Immunization History Most Recent Influenza Vaccination: 2016 Most Recent Pneumonia Vaccination: 2016 Review of Systems All Other Systems Reviewed And Are Negative: Yes Constitutional: Positive: Chills Respiratory: Positive: Shortness Of Breath, Cough Gastrointestinal: Positive: Vomiting, Diarrhea Is Patient Immunocompromised?: No Physical Exam Triage Information Reviewed: Yes Appearance: No Pain Distress, Ill-Appearing, Obese Vital Signs: Initial Vital Signs Temp 97.4 F 02/27/18 15:15 Pulse 88 02/27/18 15:15 Resp 36 02/27/18 15:15 BP 154/96 02/27/18 15:15 Pulse Ox 100 02/27/18 15:15 Eye Exam: Normal ENT: Positive: Pharynx normal, TMs normal Neck exam: Normal Respiratory: Positive: Decreased breath sounds, Wheezing - mild expiratory wheeze with coughing. Cardiovascular Exam: Normal Musculoskeletal Exam: Normal Neurological Exam: Normal Psychological Exam: Normal Skin: Negative: Rashes Re-Evaluation - Re-Evaluation First Eval Re-Evaluation Time: 16:15 Change: Improved - Much more comfortable. Moving air better, no wheezing. Shortness of Breath Dx - Differential Dx/Diagnosis Differential Diagnosis/HQI/PQRI: Bronchitis, COPD Exacerbation, Pneumonia Provider Diagnosis: Viral infection, COPD exacerbation Discharge - Sign-Out/Discharge Documenting (check all that apply): Patient Departure All imaging exams completed and their final reports reviewed: No Studies - Discharge Plan Condition: Stable Disposition: HOME Prescriptions: Albuterol HFA INHALER* [Ventolin HFA Inhaler*] 2 puff INH Q4H PRN #1 mdi PRN Reason: Shortness Of Breath Clarithromycin TAB* [Biaxin 500 MG TAB*] 500 mg PO BID #14 tab predniSONE TAB* [Deltasone 20 MG TAB*] 60 mg PO DAILY #18 tab Patient Education Materials: Viral Syndrome (ED), COPD (Chronic Obstructive Pulmonary Disease) (ED), Prednisone (By mouth), Clarithromycin (By mouth) Referrals: Juan Blum MD [Primary Care Provider] - 3 Days (Recheck breathing.) - Billing Disposition and Condition Condition: STABLE Disposition: Home
--- OUTSIDE RECORDS SUMMARY | 2018-02-27 15:56 | XMS REPORT ---
:1945 External Reference #:[id number] Author Organization [facility] Address [address] [place] [address] Phone [phone] Care Team Providers Name Role Phone Juan Blum MD Care Team Information [employer] Unavailable Juan Blum MD Primary Care Physician Unavailable Payers Type Date Identification Numbers Payment Provider Subscriber Commercial Effective: Policy Number: [id number] Todaybolivar Ibanez 2018 [employer] PayID: [id number] [address] [address] [place] [address] Commercial Effective: 2016 Policy Number: Options Hillary Ibanez [id number] Medicare Expires: 2018 PayID: [id number] [address] [address] [place] [address] Problems Date Description Provider Status Onset: 05/11/2008 History of polyp of colon Juan Blum M.D. Active Onset: 05/11/2008 Depressive disorder Juan Blum M.D. Active Onset: 05/11/2008 Hyperlipidemia Juan Blum M.D. Active Onset: 11/17/2011 Gastroesophageal reflux disease Juan Blum M.D. Active Onset: 01/01/2015 Obesity Juan Blum M.D. Active Onset: 06/02/2016 Essential hypertension Juan Blum M.D. Active Onset: 06/02/2016 Low back pain Juan Blum M.D. Active Onset: 07/24/2016 Arthralgia of the pelvic region and Juan Blum M.D. Active thigh Onset: 02/26/2018 Sialoadenitis Juan Blum M.D. Active Onset: 02/26/2018 Shoulder joint pain Juan Blum M.D. Active Onset: 02/26/2018 Screening for malignant neoplasm of Juan Blum M.D. Active colon Onset: 05/09/2011 Backache Juan Blum M.D. Inactive Inactive: 06/03/2016 Onset: 01/01/2015 Basal cell carcinoma skin/ unsp Juan Blum M.D. Inactive upper limb, inc shoulder Inactive: 06/03/2016 Onset: 01/21/2015 Mixed hyperlipidemia Juan Blum M.D. Inactive Inactive: 06/03/2016 Onset: 05/11/2008 Chronic obstructive lung disease Juan Blum M.D. Inactive Inactive: 07/26/2016 Onset: 01/01/2015 Atypical depressive disorder Juan Blum M.D. 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 s mouth Leticiaish, - twice a M.D. 03/15 day for 10days Anoro Ellipta 02/26 Active Aerosol 62.5-25mc 60uni inhale 1 Juan . g/Inh ts puff by Shallish, mouth M.D. daily for chronic obstructi ve lung disease Venlafaxine HCL 01/01 Active Caps ER 75mg 90cap Take 1 Juan F. ER 24HR s Capsule Shallish, Once M.D. Daily Omeprazole 09/27 Active Capsules 20mg 90cap Take [address] s Capsule Shallish, Daily M.D. Pravastatin 05/13 Active Tablets 10mg 90tab Take 1 Juan F. Sodium s Tablet Shallish, Once M.D. Daily Mometasone 05/08 Active Cream 0.1% 45gm apply Ujan F. Furoate three Shallish, times a M.D. day as needed Hydrochlorothiazi 08/09 Active Capsules 12.5mg 90cap Take 1 Juan F. de s Capsule Shallish, Once M.D. Daily Ibuprofen Active Tablets 200mg 1 by Unknown /0000 mouth three times a day Vitamin D Active Tablets 1000Unit 1 by Unknown /0000 mouth every day otc Vitamin B- Active Tablets 2500mcg 1 po qd Unknown /0000 Sub Azithromycin 12/26 Hx Tablets 250mg 6tabs take 2 Juan F. tablets Shallish, - by mouth M.D. 02/26 on day then 1 tablet on days 2 through 5 Maribell Garcia 07/24 Hx 1unit dx Juan F. With Wheels And /2016 s arthritis Gwendolyn Blum - duration M.D. 02/26 Zithromax Z-Chase 06/11 Hx Tablets 250mg 1Pack as Arnel JSharon /2016 directed Krunal - M.D. 07/24 Azithromycin 04/15 Hx Tablets 250mg 6tabs take 2 Juan F. tablets Shallish, - by mouth M.D. 06/01 on day then 1 tablet on days 2 through 5 Azithromycin 01/15 Hx Tablets 250mg 6tabs take 2 Juan F. tablets Shallish, - by mouth M.D. 06/01 on day then 1 tablet on days 2 through 5 Azithromycin 11/28 Hx Tablets 250mg 6tabs take 2 Edwin T. /2013 tablets Midura, - by mouth M.D. 01/01 on day then 1 tablet on days 2 through 5 Zostavax 11/09 Hx Solution [id number] 1dose inject Juan F. Rec 0.65ML Viktoria - M.D. 01/01 Acetaminophen/Cod 09/27 Hx Tablets 300-30mg 30tab 1-2 po Juan F. eine #3 s q4h prn Viktoria, - M.D. 01/01 Naproxen 09/27 Hx Tablets 375mg 90tab take 1 Juan F. s tablet 3 Shallish, - times M.D. 07/24 daily needed Zostavax 07/20 Hx Solution [id number]/ 1dose inject Juan . Rec 0.65ML Shallish, - M.D. 09/27 Azithromycin 04/20 Hx Tablets 250mg 6tabs take 2 Juan F. tablets Shallish, - by mouth M.D. 05/02 on day then 1 tablet on days 2 through 5 Azithromycin 02/08 Hx Tablets 250mg 6tabs take 2 Juan F. tablets Shallish, - by mouth M.D. 09/27 on day then 1 tablet on days 2 through 5 Azithromycin 12/14 Hx Tablets 250mg 6tabs take 2 Juan F. tablets Shallish, - by mouth M.D. 12/21 on day then 1 tablet on days 2 through 5 Omeprazole 11/16 Hx Capsules 20mg 30cap 1 po qd Juan . DR bolivar Blum, - M.D. 11/16 Azithromycin 06/01 Hx Tablets 250mg 6tabs take 2 Juan F. tablets Shallish, - by mouth M.D. 11/16 on day then 1 tablet on days 2 through 5 Venlafaxine HCL 05/08 Hx Caps ER 150mg 90cap Take 1 Juan F. 24HR s Capsule Shallish, - Once M.D. 01/01 With Food Azithromycin 02/28 Hx Tablets 250mg 6tabs take 2 Juan F. tablets Shallish, - by mouth M.D. 03/06 on day then 1 tablet on days 2 through 5 Azithromycin 12/31 Hx Tablets 250mg 6tabs take 2 Juan F. tablets Shallish, - by mouth M.D. 01/06 on day then 1 tablet on days 2 through 5 Combivent 12/01 Hx Aerosol 18-103mcg 14.7u inhale 2 Juan F. /Act nits puffs by Viktoria, - mouth M.D. 05/08 times a day Venlafaxine HCL 08/30 Hx Caps ER 75mg 30cap take 1 Juan F. ER 24HR s capsule Shallish, - by mouth M.D. 05/08 once daily Tramadol 07/31 Hx Tablets 37.5-325m 150ta take 1 to Juan F. g bs 2 tablets Shallish, taminophen - by mouth M.D. 09/27 every hours if needed Augmentin 06/27 Hx Tablets 875-125mg 20tab 1 po bid Juan F. s x 10 days Shallkristian, - M.D. 07/05 Azithromycin 05/13 Hx Tablets 250mg 6tabs take 2 Juan F. tablets Shallish, - by mouth M.D. 06/12 on day then 1 tablet on days 2 through 5 Azithromycin 04/10 Hx Tablets 250mg 6tabs take 2 Juan F. tablets Shallish, - by mouth M.D. 04/18 on day then 1 tablet on days 2 through 5 Ultracet 03/20 Hx Tablets 37.5-325m 30tab 1-2 po Juan F. g s q4h prn Shallish, - M.D. 07/31 Cephalexin 03/14 Hx Capsules 500mg 30cap 1 po tid Juan F. s x 10 days Shallkristian, - M.D. 03/24 Azithromycin 03/06 Hx Tablets 250mg 6tabs take 2 Juan F. tablets Shallish, - by mouth M.D. 03/14 on day then 1 tablet on days 2 through 5 Gentak 01/22 Hx Solution 0.3% 5ml 1-2 gtts Juan . qid for Shallish, - 3-4 days M.D. 03/08 Azithromycin 11/09 Hx Tablets 250mg 6tabs take 2 Juan F. tablets Shallish, - by mouth M.D. 01/22 on day then 1 tablet on days 2 through 5 Effexor XR 08/09 Hx Capsules 75mg 180ca 1 po qd Juan F. ps Viktoria, - M.D. 08/30 Azithromycin 05/24 Hx Tablets 250mg 6tabs take 2 Juan F. tablets Shallish, - by mouth M.D. 08/09 on day then 1 tablet on days 2 through 5 Zithromax Z-Chase 05/08 Hx Tablets 250mg 6tabs 2 po qd Juan F. /2009 x1 day, Viktoria, - then 1 po M.D. 05/11 qd Azithromycin 04/16 Hx Tablets 250mg 6tabs take 2 Juan F. tablets Viktoria, - by mouth M.D. 05/24 on day then 1 tablet on days 2 through 5 Combivent 01/30 Hx Aerosol 103-18mcg 1unit inhale 2 Juan F. /2008 / s puffs by Viktoria, - mouth 4 M.D. 12/01 times day Handicapped 01/30 Hx requires Juan F. Parking handicapp Viktoria, - ed M.D. 08/09 parkin dx: copd lifelong Tobrex 01/10 Hx Solution 0.3% 5ml 1-2 gtts 372.00 Kate right eye Jorgito, - q 4 hrs Afnp-C 01/15 Zithromax 11/08 Hx Tablets 250mg 6Tabs 2 po qd Juan F. /2008 today , Viktoria, - then 1 po M.D. 01/10 qd times 4 Amlodipine 11/02 Hx Tablets 2.5mg 30tab take 1 Juan F. Besylate s tablet by Viktoria, - mouth M.D. 01/30 daily directed Lexapro 11/02 Hx Tabs 10mg 90tab Take 1 Juan F. s Tablet By Viktoria, - Mouth M.D. 08/09 Once Daily Zithromax Z-Chase 06/08 Hx Tablets 250mg 6tabs 2 po qd Juan F. /2008 x1 day, Viktoria, - then 1 po M.D. 11/02 qd Crestor 02/01 Hx Tablets 5mg 30tab take 1 Juan F. /2007 s tablet by Viktoria, - mouth M.D. 05/08 once daily Doxycycline 12/01 Hx Capsules 100mg 20cap 1 po bid Juan F. Monohydrate s Viktoria, - M.D. 01/06 Avelox 11/14 Hx Tablets 400mg 7tabs 1 po qd Juan F. /2008 Jef Blum M.D. 12/01 Mycostatin 10/25 Hx Suspension [id number] 200cc 5cc swish t/ML and Viktoria - swallow Fitz 01/06 qid Out Of Work Until 10/20 Hx out of work Viktoria, - until M.DSharon 10/2511/08/07 Hydrocodone 10/06 Hx Tablets 5-500mg 60tab 1 po q 4 . Bitartrate/Apap s hr prn Jef Blum M.D. 01/06 Proair Hfa 10/06 Hx Aerosol 108mcg/Ac 1unit 2 Puffs t s Q4H prn Jef Blum M.D. 01/06 Levaquin 10/06 Hx Tablets 500mg 10tab 1 po qd x s 7days. Jef Blum M.D. 11/14 Out Of Work Until 10/06 Hx out of Juan work Viktoria, - princess M.DSharon 10/2510/26/07 Naproxen 12/15 Hx Tablets 500mg 40tab 1 PO bid Juan s prn Pain Jef Blum M.D. 10/06 Physical Therapy 12/15 Hx treatment and Viktoria - evaluchan Byrnes 10/06 n for right shoulder pain Tricor 07/05 Hx Tablets 145mg 30tab 1 po qd Juan F s Jef Blum M.D. 12/15 Omeprazole 06/23 Hx Capsules 20mg 90cap 1 PO qd Juan F s Jef Blum M.D. 05/24 Chantix 06/23 Hx 1unit 1 Starter 305.1 Juan s Pack For Jef Blum M.D. 10/06 Month, n Refill Maintenan ce Packs Tricor 08/14 Hx Tablets 48mg 30tab 1 po qd Juan F. s Jef Blum M.D. 06/23 Effexor SR 11/27 Hx 75mg 90uni 1 po qd Juan F. Jef Urbano M.D. 11/27 Effexor XR 11/27 Hx Capsules 75mg 180ca 1 po qd Juan F. ps Jef Blum M.D. 11/02 Effexor XR 10/10 Hx Capsules 37.5mg 90cap 1 po qd Juan F. Jef Renner M.D. 11/27 Pravachol 06/06 Hx Tablets 10mg 30tab 1 PO qd Juan F. Jef Renner M.D. 04/11 Zetia 10/12 Hx 10mg 90uni 1 po qd Juan F. Jef Urbano M.D. 10/10 Altocor 06/29 Hx Tablets 20mg 30tab 1 po qhs Juan F. Jef Renner M.D. 10/04 Sporonox Pulse 06/29 Hx 200mg po Juan F. bid for Viktoria, - one weekFitz 10/04 then for 3 weeks, repeat once Lipitor 04/25 Hx 10mg 30uni 1 po q hs Juan Jef Urbano M.D. 06/29 Nexium 04/11 Hx 40mg 60uni 1 qd Juan F. Jef Urbano M.D. 06/23 Effexor XR 04/11 Hx Tablets 75mg 30tab 1 po qd Juan F. Jef Renner M.D. 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 s day 1 Jef Blum M.D. 05/11 1 tab qd days 2 thru 5 Xanax 03/21 Hx .25mg 90uni 1 PO tid Juan F. ts prn Jef Blum M.D. 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 Back Pain Jef Blum M.D. 04/21 Femhrt 02/28 Hx 1mg/5 mcg 30uni 1 PO qd [facility] 04/11 [place] Zithromax 02/15 Hx 250mg 6unit 2 Tabs Marla s Day 1 Hilsdorf, - Afnp-C 02/20 1 Tab qd Days 2 Thru 5 Vioxx 02/04 Hx 25mg 20uni 1 PO qd Juan F. Jef Urbano M.D. 02/22 Tetracycline 01/18 Hx 250mg 40uni PO qid X Juan F. Jef Kwok M.D. 01/28 Z-Pack 12/15 Hx 1unit as Arnel J. s Jef Lebron M.D. 04/16 Ortho-Prefest 10/21 Hx [facility] 02/28 Xanax 10/21 Hx Tabs .25mg 90tab 1 PO tid Juan F. s prn Jef Blum M.D. 02/22 Protonix 08/10 Hx 40mg 90uni 1 PO qd Juan F. Jef Urbano M.D. 04/11 Conrado MD Shelby 07/22 Hx For Juan F. Cardiac Jef Blum M.D. 10/21 Control [email or web address] Is [employer] Axid 07/22 Hx 150mg 60uni 1-2 PO Juan F. Jef Harrison M.D. 10/21 Pre Fest 04/22 Hx 1 PO qd [facility] 10/21 Nexium 04/22 Hx Capsules 40mg 90cap take [address] bolivar Blum, - by mouth M.Neo 09/27 once daily Garamycin 04/08 Hx 10cc 1-2 gtts Juan F. Opthal qid prn Katie Blum - For 2-3 M.D. Wellbutrin-SR 09/05 Hx 150mg 60uni 1 PO bid Juan F. Jef Urbano M.D. 03/21 Premarin 06/01 Hx .625mg 30uni 1 PO qd Juan F. Jef UrbanoDSharon 04/22 Wellbutrin-SR 06/01 Hx 150mg 60uni 1 PO bid Juan F. Jef Urbano M.D. 07/31 Advair Diskus Hx Misc 250/50 1unit 1 bid - Juan F. / s Inhale Viktoria, - One puff M.DSharon 11/02 /2008 Daily Hair/Skin/Nails Hx Tablets 3 tablets Unknown /0000 daily - 02/26 Medications Administered in Office Medication Date Status Form Strength Qnty SIG Indications Ordering Provider TB Intradermal Injection Family [facility] Immunizations CPT Code Status Date Vaccine Lot # [id number] Given 12/02/2017 Influenza Vac, Quadriv[place], [place] [id number] Given 11/21/2016 High-Dose, Influenza Virus Vacccine-fluzone 65 and older 20394 Given 01/09/2016 High-Dose, Influenza Virus Vacccine-fluzone 65 and older 15345 Given 01/01/2015 Pneumococcal Conjugate Vacc-13 [id number] 80956 Given 01/01/2015 High-Dose, Influenza Virus Vacccine-fluzone 65 and [id number] older [address] Given 11/10/2013 Zostivax 70532 Given 11/10/2013 DO Not Use Split Influenza Virus Vaccine 59144 Given 11/17/2012 DO Not Use Split Influenza Virus Vaccine 93409 Given 05/11/2008 Tdap Tetanus, W Pertussis [id number] 43445 Given 01/07/2008 Pneumococcal Immunization [id number] Vital Signs Date Vital Result Comment 02/26/2018 BP Systolic 138 mmHg BP Diastolic 70 mmHg Heart Rate 76 /min Body Temperature 99.3 F Respiratory Rate 18 /min Height 62.5 inches 5'2.50" Weight 214.00 lb BMI (Body Mass Index) 38.5 kg/m2 07/24/2016 BP Systolic 140 mmHg BP Diastolic 90 mmHg Heart Rate 100 /min Body Temperature 98.2 F O2 % BldC Oximetry 945 % Height 62.5 inches 5'2.50" Weight 212.00 lb BMI (Body Mass Index) 38.2 kg/m2 06/02/2016 BP Systolic 158 mmHg BP Diastolic 90 mmHg Heart Rate 78 /min Body Temperature 99.0 F Height 62.5 inches 5'2.50" Weight 213.00 lb BMI (Body Mass Index) 38.3 kg/m2 01/01/2015 BP Systolic 138 mmHg BP Diastolic 88 mmHg Heart Rate 78 /min Body Temperature 97.6 F Respiratory Rate 15 /min Height 62.5 inches 5'2.50" Weight 217.25 lb BMI (Body Mass Index) 39.1 kg/m2 09/27/2013 BP Systolic 148 mmHg BP Diastolic 92 mmHg Heart Rate 88 /min Body Temperature 98.9 F Respiratory Rate 18 /min Height 62.5 inches 5'2.50" Weight 217.38 lb BMI (Body Mass Index) 39.1 kg/m2 11/17/2011 BP Systolic 130 mmHg BP Diastolic 90 mmHg Heart Rate 78 /min Body Temperature 98.6 F Height 62.5 inches 5'2.50" Weight 194.00 lb BMI (Body Mass Index) 34.9 kg/m2 05/09/2011 BP Systolic 120 mmHg BP Diastolic 70 mmHg Heart Rate 84 /min Body Temperature 97.6 F Height 62.5 inches 5'2.50" Weight 202.00 lb BMI (Body Mass Index) 36.4 kg/m2 09/05/2010 BP Systolic 130 mmHg BP Diastolic 90 mmHg Heart Rate 76 /min Respiratory Rate 15 /min Height 62.5 inches 5'2.50" Weight 213.00 lb BMI (Body Mass Index) 38.3 kg/m2 03/14/2010 BP Systolic 138 mmHg BP Diastolic 72 mmHg Heart Rate 88 /min Body Temperature 98.6 F Weight 237.00 lb 03/08/2010 BP Systolic 120 mmHg BP Diastolic 78 mmHg Heart Rate 80 /min Body Temperature 98.2 F Height 62.5 inches 5'2.50" Weight 235.00 lb BMI (Body Mass Index) 42.3 kg/m2 08/09/2009 BP Systolic 115 mmHg BP Diastolic 80 mmHg Heart Rate 70 /min Respiratory Rate 20 /min 01/30/2009 BP Systolic 128 mmHg BP Diastolic 80 mmHg Heart Rate 84 /min Body Temperature 98.2 F Height 62.5 inches 5'2.50" Weight 233.00 lb BMI (Body Mass Index) 41.9 kg/m2 01/10/2009 BP Systolic 124 mmHg BP Diastolic 70 mmHg Body Temperature 98.7 F Height 62.5 inches 5'2.50" Weight 235.00 lb BMI (Body Mass Index) 42.3 kg/m2 11/02/2008 BP Systolic 118 mmHg BP Diastolic 70 mmHg Heart Rate 88 /min Height 62.5 inches 5'2.50" Weight 226.00 lb BMI (Body Mass Index) 40.7 kg/m2 05/11/2008 BP Systolic 128 mmHg BP Diastolic 80 mmHg Heart Rate 76 /min Body Temperature 97.5 F Respiratory Rate 20 /min Weight 220.00 lb 01/07/2008 BP Systolic 106 mmHg BP Diastolic 60 mmHg Heart Rate 96 /min Body Temperature 98.4 F Height 62.50 inches 5'2.50" Weight 206.00 lb BMI (Body Mass Index) 37.1 kg/m2 12/02/2007 BP Systolic 126 mmHg BP Diastolic 70 mmHg Heart Rate 92 /min Body Temperature 98.5 F O2 % BldC Oximetry 95 % Height 62.50 inches 5'2.50" Weight 201.00 lb BMI (Body Mass Index) 36.2 kg/m2 11/19/2007 BP Systolic 126 mmHg BP Diastolic 80 mmHg Heart Rate 72 /min Body Temperature 98.2 F Height 62.50 inches 5'2.50" Weight 196.00 lb BMI (Body Mass Index) 35.3 kg/m2 10/21/2007 BP Systolic 130 mmHg BP Diastolic 80 mmHg Heart Rate 90 /min Body Temperature 98.5 F O2 % BldC Oximetry 96 % Height 62.50 inches 5'2.50" Weight 198.00 lb BMI (Body Mass Index) 35.6 kg/m2 10/07/2007 BP Systolic 112 mmHg BP Diastolic 70 mmHg Heart Rate 84 /min Body Temperature 98.3 F O2 % BldC Oximetry 93 % Height 62.50 inches 5'2.50" Weight 197.00 lb BMI (Body Mass Index) 35.5 kg/m2 12/15/2006 BP Systolic 128 mmHg BP Diastolic 70 mmHg Heart Rate 84 /min Body Temperature 99.1 F Height 62.50 inches 5'2.50" Weight 212.00 lb BMI (Body Mass Index) 38.2 kg/m2 06/23/2006 BP Systolic 132 mmHg BP Diastolic 80 mmHg Heart Rate 88 /min Body Temperature 98.8 F Height 62.50 inches 5'2.50" Weight 206.00 lb BMI (Body Mass Index) 37.1 kg/m2 08/14/2005 BP Systolic 138 mmHg BP Diastolic 80 mmHg Heart Rate 72 /min Height 62.50 inches 5'2.50" Weight 207.00 lb BMI (Body Mass Index) 37.3 kg/m2 04/11/2005 BP Systolic 154 mmHg BP Diastolic 80 mmHg Heart Rate 96 /min Height 62.50 inches 5'2.50" Weight 213.00 lb BMI (Body Mass Index) 38.3 kg/m2 10/10/2004 BP Systolic 112 mmHg BP Diastolic 70 mmHg Heart Rate 72 /min Height 62.50 inches 5'2.50" Weight 208.00 lb BMI (Body Mass Index) 37.4 kg/m2 06/06/2004 BP Systolic 130 mmHg BP Diastolic 80 mmHg Heart Rate 84 /min Height 62.50 inches 5'2.50" Weight 210.00 lb BMI (Body Mass Index) 37.8 kg/m2 02/08/2004 BP Systolic 136 mmHg BP Diastolic 80 mmHg Heart Rate 78 /min Height 62.50 inches 5'2.50" Weight 206.00 lb BMI (Body Mass Index) 37.1 kg/m2 10/05/2003 BP Systolic 130 mmHg LG Cuff BP Diastolic 84 mmHg LG Cuff Heart Rate 96 /min Height 62.50 inches 5'2.50" Weight 206.00 lb BMI (Body Mass Index) 37.1 kg/m2 06/30/2003 BP Systolic 144 mmHg BP Diastolic 72 mmHg Heart Rate 78 /min Height 62.50 inches 5'2.50" Weight 205.00 lb BMI (Body Mass Index) 36.9 kg/m2 04/11/2003 BP Systolic 150 mmHg BP Diastolic 70 mmHg Heart Rate 88 /min Height 62.50 inches 5'2.50" Weight 202.00 lb BMI (Body Mass Index) 36.4 kg/m2 02/20/2003 BP Systolic 128 mmHg BP Diastolic 78 mmHg Heart Rate 78 /min Height 62.50 inches 5'2.50" 09/08/2002 BP Systolic 140 mmHg BP Diastolic 78 mmHg Heart Rate 80 /min Body Temperature 97.4 F Height 62.50 inches 5'2.50" Weight 185.00 lb BMI (Body Mass Index) 33.3 kg/m2 2002 BP Systolic 130 mmHg BP Diastolic 74 mmHg Heart Rate 72 /min Body Temperature 97.2 F Height 62.50 inches 5'2.50" Weight 190.00 lb BMI (Body Mass Index) 34.7 kg/m2 03/21/2002 BP Systolic 142 mmHg BP Diastolic 90 mmHg Height 62.50 inches 5'2.50" Weight 194.00 lb BMI (Body Mass Index) 35.5 kg/m2 02/28/2002 BP Systolic 132 mmHg BP Diastolic 78 mmHg Heart Rate 80 /min Height 62.50 inches 5'2.50" Weight 197.00 lb BMI (Body Mass Index) 36.0 kg/m2 02/22/2002 BP Systolic Recheck 140 mmHg BP Diastolic Recheck 88 mmHg Heart Rate 68 /min Height 62.50 inches 5'2.50" Weight 202.00 lb BMI (Body Mass Index) 36.9 kg/m2 02/15/2002 Heart Rate 80 /min Body Temperature 97.6 F Height 62.50 inches 5'2.50" Weight 204.00 lb BMI (Body Mass Index) 37.3 kg/m2 02/04/2002 BP Systolic 130 mmHg BP Diastolic 70 mmHg Heart Rate 88 /min Height 62.50 inches 5'2.50" Weight 205.00 lb BMI (Body Mass Index) 37.5 kg/m2 12/15/2001 BP Systolic 130 mmHg BP Diastolic 88 mmHg Body Temperature 98.2 F Height 62.50 inches 5'2.50" Weight 210.00 lb BMI (Body Mass Index) 38.4 kg/m2 10/21/2001 BP Systolic 122 mmHg BP Diastolic 84 mmHg Height 62.50 inches 5'2.50" Weight 210.00 lb BMI (Body Mass Index) 38.4 kg/m2 07/22/2001 BP Systolic 149 mmHg BP Diastolic 76 mmHg Heart Rate 80 /min Height 62.50 inches 5'2.50" Weight 210.00 lb BMI (Body Mass Index) 38.4 kg/m2 05/21/2001 BP Systolic 132 mmHg BP Diastolic 82 mmHg Heart Rate 80 /min Height 62.50 inches 5'2.50" Weight 206.00 lb BMI (Body Mass Index) 37.7 kg/m2 04/22/2001 BP Systolic 130 mmHg LG Cuff BP Diastolic 76 mmHg LG Cuff Body Temperature 97.9 F Height 62.50 inches 5'2.50" Weight 207.00 lb BMI (Body Mass Index) 37.9 kg/m2 06/01/1997 BP Systolic 110 mmHg BP Diastolic 72 mmHg Height 62.50 inches 5'2.50" Weight 205.00 lb Results Test Date Test Result H/L Range Note Laboratory test finding 02/26/2018 TSH <pending> 0.5-5.0 Free T4 <pending> 0.75-1.54 Laboratory test finding 07/25/2016 Urine Culture And SEE RESULT BELOW 1 Sensitivities Type & Screen 07/25/2016 Patient Blood Type O Positive Antibody Screen NEGATIVE 2 Comp Metabolic Panel 07/25/2016 Sodium 137 mmol/L 133-145 Potassium 4.2 mmol/L 3.5-5.0 Chloride 99 mmol/L Low 101-111 Co2 Carbon Dioxide 31 mmol/L 22-32 Anion Gap 7 mmol/L 2-11 Glucose 101 mg/dL High 70-100 Blood Urea Nitrogen 18 mg/dL 6-24 Creatinine 0.90 mg/dL 0.51-0.95 BUN/Creatinine Ratio 20.0 8-20 Calcium 9.8 mg/dL 8.6-10.3 Total Protein 7.3 g/dL 6.4-8.9 Albumin 4.2 g/dL 3.2-5.2 Globulin 3.1 g/dL 2-4 Albumin/Globulin Ratio 1.4 1-3 Total Bilirubin 0.40 mg/dL 0.2-1.0 Alkaline Phosphatase 97 U/L 34-104 Alt 11 U/L 7-52 Ast 14 U/L 13-39 Egfr Non- 61.9 >60 Egfr 79.6 >60 3 Laboratory test finding 07/25/2016 Partial Thrombo Time 30.0 seconds 26.0 -36.3 PTT Inr/Protime 07/25/2016 Inr 0.88 Low 0.89-1.11 Urinalysis Profile 07/25/2016 Urine Color Yellow Urine Appearance Clear Urine Specific [place] 1.013 1.010-1.030 Urine pH 7.0 5-9 Urine Urobilinogen Negative Negative Urine Ketones Negative Negative Urine Protein Negative Negative Urine Leukocytes 3+ Negative Urine Blood Negative Negative Urine Nitrite Negative Negative Urine Bilirubin Negative Negative Urine Glucose Negative Negative Urine White Blood Cell 1+(6-10/hpf) Absent Urine Red Blood Cell 2+(6-10/hpf) Absent Urine Bacteria Absent Absent Urine Squamous Epithelial Cell Present Absent CBC No Diff 07/25/2016 White Blood Count 8.1 10^3/uL 3.5-10.8 Red Blood Count 4.61 10^6/uL 4.0-5.4 Hemoglobin 13.4 g/dL 12.0-16.0 Hematocrit 40 % 35-47 Mean Corpuscular Volume 88 fL 80-97 Mean Corpuscular Hemoglobin 29 pg 27-31 Mean Corpuscular HGB Conc 33 g/dL 31-36 Red Cell Distribution Width 14 % 10.5-15 Platelet Count 233 10^3/uL 150-450 Mean Platelet Volume 9 um3 7.4-10.4 CBC Electronic (Fma) 07/24/2016 WBC 6.8 3.6-9.6 RBC 4.50 3.90-5.70 Hemoglobin (Fma/CMC/CTX) 13.6 g/dL 12.1 - 17.2 Hematocrit (Fma/CMC/CTX) 39.8 % 36.1 - 50.3 Platelets 233 10^3/ul 150-400 Lymph% 27.0 % 17.0-48.0 Mixed% 4.6 Neutrophils % 68.4 Mean Corpuscular Vol 88 82.2-97.4 Mean Corpuscular Hemoglobin 30.2 27.6-33.3 Mean Corpuscular Hemo Concen 34.2 32.0-36.0 RDW 13.8 High 11.6-13.7 Mean Platelet Volume 7.4 5.5-11.0 Comprehensive Metabolic Prof 07/24/2016 Sodium 140 mEq/L 134-149 Potassium 3.8 mEq/L 3.6-5.5 Chloride 99 mEq/L 94-112 Carbon Dioxide 31 mEq/L 21-32 Glucose 102 mg/dL 70-105 BUN 20 mg/dL 6-26 Creatinine 0.9 mg/dL 0.6-1.4 BUN/Creat Ratio 22.2 CALC 8.0-36.0 Calcium 9.8 mg/dL 8.6-10.2 Total Protein 7.1 g/dL 6.4-8.3 Albumin 4.1 g/dL 3.8-5.5 Globulin 3.0 g/dL 2.0-4.8 A/G Ratio 1.4 CALC 0.6-2.3 Alk. Phosphatase 88 U/L 30-110 Alt (SGPT) 14 U/L 7-35 Ast (Sgot) 17 U/L 5-34 Total Bilirubin 0.3 mg/dL 0.2-1.3 GFR Non- >60 ml/min/1.73m^ >=60 GFR >60 ml/min/1.73m^ >=60 Lipid Profile 07/24/2016 Cholesterol 217 mg/dL High 120-200 Triglycerides 369 mg/dL High 30-200 HDL Cholesterol 45 mg/dL 30-85 LDL (Calculated) 98 CALC 0-129 VLDL Cholesterol 74 mg/dL High 0-50 HDL Risk Factor 4.8 CALC High 0.0-4.4 Laboratory test finding 07/24/2016 Free T4 0.81 ng/dL 0.75-1.54 TSH 1.30 mIU/L 0.50-6.00 CK 83 U/L 26-140 LDL, Direct 111 mg/dL 0-130 Lipid Profile 06/02/2016 Cholesterol 232 mg/dL High 120-200 Triglycerides 262 mg/dL High 30-200 HDL Cholesterol 49 mg/dL 30-85 LDL (Calculated) 131 CALC High 0-129 VLDL Cholesterol 52 mg/dL High 0-50 HDL Risk Factor 4.7 CALC High 0.0-4.4 Comprehensive Metabolic Prof 06/02/2016 Sodium 143 mEq/L 134-149 Potassium 5.5 mEq/L 3.6-5.5 Chloride 102 mEq/L 94-112 Carbon Dioxide 28 mEq/L 21-32 Glucose 108 mg/dL High 70-105 4 BUN 19 mg/dL 6-26 Creatinine 0.8 mg/dL 0.6-1.4 BUN/Creat Ratio 23.8 CALC 8.0-36.0 Calcium 9.6 mg/dL 8.6-10.2 Total Protein 7.6 g/dL 6.4-8.3 Albumin 4.3 g/dL 3.8-5.5 Globulin 3.3 g/dL 2.0-4.8 A/G Ratio 1.3 CALC 0.6-2.3 Alk. Phosphatase 98 U/L 30-110 Alt (SGPT) 14 U/L 7-35 Ast (Sgot) 20 U/L 5-34 Total Bilirubin 0.4 mg/dL 0.2-1.3 GFR Non- >60 ml/min/1.73m^ >=60 GFR >60 ml/min/1.73m^ >=60 Laboratory test finding 06/02/2016 TSH 1.93 mIU/L 0.50-6.00 CK 95 U/L 26-140 Complete Blood Count 06/02/2016 WBC 5.5 x10^3/UL 3.6-9.6 RBC 4.62 x10^6/UL 3.90-5.70 HGB 13.6 g/dL 12.1-17.2 HCT 41 % 36-50 MCV 88.0 fL 82.2-97.4 MCH 29.3 pg 27.6-33.3 MCHC 33.2 g/dL 33.0-35.5 RDW 14.7 % High 11.6-13.7 PLT 238 x10^3/UL 150-400 MPV 7.5 fL 7.4-10.4 Gran # 3.7 x10^3/UL 1.5-7.2 Lymph# 1.6 x10^3/UL 0.7-4.9 [place]# 0.2 x10^3/UL 0.1-0.9 Gran % 65.7 % 42.2-75.2 Lymph % 30.5 % 20.5-51.1 [place]% 3.8 % 1.7-9.3 Laboratory test finding 06/02/2016 LDL, Direct 130 mg/dL 0-130 Laboratory test finding 01/09/2015 [facility] [place]oguard [place] Lipid Profile 01/01/2015 Cholesterol 231 mg/dL High 120-200 Triglycerides 242 mg/dL High 30-200 HDL Cholesterol 47 mg/dL 30-85 LDL (Calculated) 136 CALC High 0-129 VLDL Cholesterol 48 mg/dL 0-50 HDL Risk Factor 4.9 CALC High 0.0-4.4 Comprehensive Metabolic Prof 01/01/2015 Sodium 140 mEq/L 134-149 Potassium 3.9 mEq/L 3.6-5.5 Chloride 100 mEq/L 94-112 Carbon Dioxide 24 mEq/L 21-32 Glucose 85 mg/dL 70-105 BUN 15 mg/dL 6-26 Creatinine 0.8 mg/dL 0.6-1.4 BUN/Creat Ratio 18.8 CALC 8.0-36.0 Calcium 9.1 mg/dL 8.6-10.2 Total Protein 7.3 g/dL 6.4-8.3 Albumin 4.3 g/dL 3.8-5.5 Globulin 3.0 g/dL 2.0-4.8 A/G Ratio 1.4 CALC 0.6-2.3 Alk. Phosphatase 91 U/L 30-110 Alt (SGPT) 18 U/L 7-35 Ast (Sgot) 17 U/L 5-34 Total Bilirubin 0.3 mg/dL 0.2-1.3 GFR Non- >60 ml/min/1.73m^ >=60 GFR >60 ml/min/1.73m^ >=60 Laboratory test finding 01/01/2015 TSH 1.43 mIU/L 0.50-6.00 CK 94 U/L 26-140 Complete Blood Count 01/01/2015 WBC 6.3 x10^3/UL 3.6-9.6 RBC 4.42 x10^6/UL 3.90-5.70 HGB 13.5 g/dL 12.1-17.2 HCT 40 % 36-50 MCV 90.0 fL 82.2-97.4 MCH 30.4 pg 27.6-33.3 MCHC 33.8 g/dL 33.0-35.5 RDW 14.4 % High 11.6-13.7 PLT 240 x10^3/UL 150-400 MPV 7.7 fL 7.4-10.4 Gran # 4.2 x10^3/UL 1.5-7.2 Lymph# 1.8 x10^3/UL 0.7-4.9 [place]# 0.3 x10^3/UL 0.1-0.9 Gran % 65.4 % 42.2-75.2 Lymph % 29.6 % 20.5-51.1 [place]% 5.0 % 1.7-9.3 Lipid Profile 11/17/2011 Cholesterol 239 mg/dL High 120-200 HDL 45 mg/dL 30-85 Triglycerides 310 mg/dL High 30-200 HDL Risk Factor 5.3 CALC High 0.0-4.4 LDL (Calculated) 132 CALC High 0-129 5 VLDL (Calculated) 62 mg/dL High 0-50 Comprehensive Metabolic Prof 11/17/2011 Albumin 3.8 g/dL 3.8-5.5 Alk. Phos. 86 U/L 30-110 Alt (SGPT) 15 U/L 7-35 Ast (Sgot) 27 U/L 5-34 BUN 17 mg/dL 6-26 Calcium 9.9 mg/dL 8.6-10.2 Chloride 99 mEq/L 94-112 Creatinine 1.2 mg/dL 0.6-1.4 Carbon Dioxide 26 mEq/L 21-32 Glucose 97 mg/dL 70-105 Sodium 136 mEq/L 134-149 Total Bilirubin 0.4 mg/dL 0.2-1.3 Total Protein 7.5 g/dL 6.3-8.1 Potassium 4.0 mEq/L 3.6-5.5 Globulin 3.7 g/dL 2.0-4.8 A/G Ratio 1.0 Calc 0.6-2.2 BUN/Creat Ratio 14.9 Calc 8.0-36.0 Laboratory test finding 11/17/2011 Creatine Kinase 81 U/L 26-140 LDL (Direct) 141 mg/dL High 0-130 Ict Hemoccult (Fma) 05/16/2011 Ict Hemoccult (1) 05/09/11 neg Ict Hemoccult-(2) 05/10/11 neg Ict-Hemoccult (3) 05/11/11 neg Lipid Profile 05/09/2011 Cholesterol 254 mg/dL High 120-200 HDL 42 mg/dL 30-85 Triglycerides 316 mg/dL High 30-200 HDL Risk Factor 6.0 CALC High 0.0-4.0 LDL (Calculated) 149 CALC High 0-129 VLDL (Calculated) 63 mg/dL High 0-50 Comprehensive Metabolic Prof 05/09/2011 Albumin 4.3 g/dL 3.8-5.5 Alk. Phos. 96 U/L 30-110 Alt (SGPT) 22 U/L 7-35 Ast (Sgot) 22 U/L 5-34 BUN 17 mg/dL 6-26 Calcium 9.1 mg/dL 8.6-10.2 Chloride 95 mEq/L 94-112 Creatinine 0.8 mg/dL 0.6-1.4 Carbon Dioxide 28 mEq/L 21-32 Glucose 89 mg/dL 70-105 Sodium 135 mEq/L 134-149 Total Bilirubin 0.3 mg/dL 0.2-1.3 Total Protein 6.9 g/dL 6.3-8.1 Potassium 4.0 mEq/L 3.6-5.5 Globulin 2.7 g/dL 2.0-4.8 A/G Ratio 1.6 Calc 0.6-2.2 BUN/Creat Ratio 21.2 Calc 8.0-36.0 Laboratory test finding 05/09/2011 TSH 0.93 mIU/L 0.50-6.00 Creatine Kinase 95 U/L 26-140 LDL (Direct) 157 mg/dL High 0-130 Ua - Micro ([facility]) 05/09/2011 Appearance clear Color yellow Glucose, Urine (a/CMC/CTX) neg Bilirubin neg Ketones neg SP Grav 1.015 Blood neg PH 7.0 Protein neg Urobil 0.2 Nitrite neg Leukocytes (Fma/CMC/Centrex) neg Hyaline - /Lpf Granular - /Lpf WBC (a,Centrex) 0-1 RBC - Mucus (Fma/CBC/Centrex) - /Lpf Epith rare /Lpf Bacteria rare /Hpf Amorphous (Fma/CMC/Centrex) - /Lpf Crystals, Fluid (Fma/CMC/CTX) - Z#Comments - CBC Electronic ([facility]) 05/09/2011 WBC 4.8 3.6-9.6 RBC 4.14 3.90-5.70 Hemoglobin (Fma/CMC/CTX) 12.8 g/dL 12.1 - 17.2 Hematocrit (a/CMC/CTX) 37.7 % 36.1 - 50.3 Platelets 243 10^3/ul 150-400 Lymph% 32.8 20.5-51.1 Mixed% 6.4 Neutrophils % 60.8 Mean Corpuscular Vol 91 82.2-97.4 Mean Corpuscular Hemoglobin 30.8 27.6-33.3 Mean Corpuscular Hemo Concen 33.9 32.0-36.0 RDW 12.8 11.6-13.7 Mean Platelet Volume 7.6 6.5-11.0 CBC Electronic ([facility]) 09/05/2010 WBC 5.5 3.6-9.6 RBC 4.54 3.90-5.70 Hemoglobin (Fma/CMC/CTX) 13.2 g/dL 12.1 - 17.2 Hematocrit (Fma/CMC/CTX) 40.2 % 36.1 - 50.3 Platelets 251 10^3/ul 150-400 Lymph% 26.0 20.5-51.1 Mixed% 5.8 Neutrophils % 68.2 Mean Corpuscular Vol 88 82.2-97.4 Mean Corpuscular Hemoglobin 29.1 27.6-33.3 Mean Corpuscular Hemo Concen 33.0 32.0-36.0 RDW 12.5 11.6-13.7 Mean Platelet Volume 9.1 6.5-11.0 Lipid Profile 09/05/2010 Cholesterol 154 mg/dL 120-200 HDL 37 mg/dL 30-85 Triglycerides 183 mg/dL 30-200 HDL Risk Factor 4.1 CALC High 0.0-4.0 LDL (Calculated) 80 CALC 0-129 VLDL (Calculated) 37 mg/dL 0-50 Comprehensive Metabolic Prof 09/05/2010 Albumin 4.6 g/dL 3.8-5.5 Alk. Phos. 82 U/L 30-110 Alt (SGPT) 15 U/L 7-35 Ast (Sgot) 15 U/L 5-34 BUN 19 mg/dL 6-26 Calcium 9.5 mg/dL 8.6-10.2 Chloride 100 mEq/L 94-112 Creatinine 0.9 mg/dL 0.6-1.4 Carbon Dioxide 29 mEq/L 21-32 Glucose 103 mg/dL 70-105 Sodium 139 mEq/L 134-149 Total Bilirubin 0.3 mg/dL 0.2-1.3 Total Protein 7.2 g/dL 6.3-8.1 Potassium 4.4 mEq/L 3.6-5.5 Globulin 2.5 g/dL 2.0-4.8 A/G Ratio 1.8 Calc 0.6-2.2 BUN/Creat Ratio 22.3 Calc 8.0-36.0 Laboratory test finding 09/05/2010 TSH 1.19 mIU/L 0.50-6.00 Creatine Kinase 65 U/L 26-140 CBC With Electronic Diff 03/12/2010 White Blood Count 6.8 CUMM 4.8-10.8 6 Red Cell Count 4.21 CUMM 4.2-5.4 6 Hemoglobin 12.9 g/dL 12.0-16.0 6 Hematocrit 37 % 35-47 6 Mean Corpuscular Volume 89 um3 79-97 6 Mean Corpuscular Hemoglob 31 pg 27-31 6 Mean Corpuscular HGB Cone 35 g/dL 32-36 6 Redcell Distribution WDTH 14 % 10.5-15 6 Platelet Count 207 CUMM 150-450 6 Mean Platelet Volume 7.4 um3 7.4-10.4 6 Gran % 70.1 % 38-83 6 Lymph % 23.6 % Low 25-47 6 Mononuclear % 5.9 % 1-9 6 Eosinophil % 0 % 0-6 6 Basophil % 0.4 % 0-2 6 Abs Lymphs 1.6 1.0-4.8 6 Abs Mononuclear 0.4 0-0.8 6 Absolute Neutrophil Count 4.7 1.5-7.7 6 Abs Eosinophils 0 0-0.6 6 Abs Basophils 0 0-0.2 6 Comp Metabolic Panel 03/12/2010 Sodium 134 mmol/L Low 135-145 6 Potassium 4.0 mmol/L 3.5-5.0 6 Chloride 100 mmol/L Low 101-111 6 Co2 (Carbon Dioxide) 29.0 mmol/L 22-32 6 Anion Gap 5.0 mmol/L 2-11 6, 7 Glucose 98 mg/dL 70-100 6 BUN 22 mg/dL 6-24 6 Creatinine 0.70 mg/dL 0.50-1.40 6 One Over Creatinine 1.40 6 BUN/Creatinine Ratio 31.4 High 8-20 6 Calcium 9.1 mg/dL 8.1-9.9 6 Total Protein 6.4 GM/DL 6.2-8.1 6 Albumin 4.1 GM/DL 3.2-5.2 6 Globulin 2.3 GM/DL 2-4 6 Albumin/Globulin Ratio 1.8 1-3 6 Bilirubin Total 0.7 mg/dL 0.4-1.5 6, 8 Alkaline Phosphatase 71 U/L 30-110 6 Alt (SGPT) 17 U/L 14-54 6 Ast (Sgot) 21 U/L 12-42 6 eGFR Non- 89.8 > 60 6 eGFR 108.7 > 60 6, 9 Lipid Profile (Trig/Chol/HDL) 03/12/2010 Triglyceride 327 mg/dL High 40- 200 6 Cholesterol 157 mg/dL Less Than 200 6, 10 High Density Lipoprotein 30 mg/dL Low 40-60 6, 11 Cholesterol/HDL Ratio 5.23 AVERAGE High 1-4.44 6 Low Density Lipoprotein 62 mg/dL Less Than 100 6, 12 Laboratory test finding 03/12/2010 CPK (Creatine Kinase) 87 U/L 0-170 6 TSH 4.15 MIU/ML 0.34-5.60 6 Ict Hemoccult (Fma) 08/22/2009 Ict Hemoccult (1) 08/10 NEG Ict Hemoccult-(2) 08/11 NEG Ict-Hemoccult (3) 08/12 NEG Lipid Profile 08/09/2009 Cholesterol 166 mg/dL 120-200 HDL 33 mg/dL 30-85 Triglycerides 309 mg/dL High 30-200 HDL Risk Factor 5.1 CALC 4.2-7.0 LDL (Calculated) 72 CALC 0-129 VLDL (Calculated) 62 mg/dL High 0-50 Comprehensive Metabolic Prof 08/09/2009 Albumin 4.6 g/dL 3.8-5.5 Alk. Phos. 79 U/L 30-110 Alt (SGPT) 14 U/L 7-35 Ast (Sgot) 16 U/L 5-34 BUN 23 mg/dL 6-26 Calcium 9.7 mg/dL 8.6-10.2 Chloride 102 mEq/L 94-112 Creatinine 0.8 mg/dL 0.6-1.4 Carbon Dioxide 31 mEq/L 21-32 Glucose 108 mg/dL High 70-105 Sodium 141 mEq/L 134-149 Total Bilirubin 0.2 mg/dL 0.2-1.3 Total Protein 7.5 g/dL 6.3-8.1 Potassium 4.8 mEq/L 3.6-5.5 Globulin 2.9 g/dL 2.0-4.8 A/G Ratio 1.6 Calc 0.6-2.2 BUN/Creat Ratio 28.0 Calc 8.0-36.0 Laboratory test finding 08/09/2009 TSH 1.22 mIU/L 0.50-6.00 LDL (Direct) 78 mg/dL 0-130 Ua - Micro ([facility]) 08/09/2009 Appearance cloudy Color yellow Glucose, Urine (Fma/CMC/CTX) neg Bilirubin neg Ketones neg SP Grav 1.015 Blood neg PH 7.0 Protein neg Urobil 0.2 Nitrite neg Leukocytes (Fma/CMC/Centrex) small Hyaline - /Lpf Granular - /Lpf WBC (Fma,Centrex) 8-10 RBC 1-2 Mucus (Fma/CBC/Centrex) - /Lpf Epith moderate /Lpf Bacteria trace /Hpf Amorphous (Fma/CMC/Centrex) small amt /Lpf Crystals, Fluid (Fma/CMC/CTX) - Z#Comments not clean catch CBC (a) 08/09/2009 WBC 6.7 3.6-9.6 RBC 4.28 3.90-5.70 Hemoglobin (Fma/CMC/CTX) 12.7 g/dL 12.1 - 17.2 Hematocrit (Fma/CMC/CTX) 37.9 % 36.1 - 50.3 Mean Corpuscular Vol 88.6 82.2-97.4 Mean Corpuscular Hemaglobin 29.7 27.6-33.3 Mean Corpuscular Hemo Concen 33.5 33.0-36.0 Platelets 199 10^3/ul 150-400 Lymph% 25.3 20.5-51.1 Mixed% 5.7 Neutrophils % 69.0 RDW 13.9 High 11.6-13.7 Mean Platelet Volume 10.4 7.4-10.4 Lipid Profile 11/02/2008 Cholesterol 162 mg/dL 120-200 6 HDL 35 mg/dL 30-85 6 Triglycerides 250 mg/dL High 30-200 6 HDL Risk Factor 4.7 CALC 4.2-7.0 6 LDL (Calculated) 78 CALC 0-129 6 VLDL (Calculated) 50 mg/dL 0-50 6 Laboratory test finding 11/02/2008 Creatine Kinase 157 U/L High 26-140 6 , 13 Comp Metabolic Panel 05/15/2008 Sodium 140 mmol/L 135-145 6 Potassium 4.5 mmol/L 3.5-5.0 6 Chloride 104 mmol/L 101-111 6 Co2 (Carbon Dioxide) 28.0 mmol/L 22-32 6 Anion Gap 8.0 mmol/L 2-11 6, 14 Glucose 91 mg/dL 70-100 6, 15 BUN 14 mg/dL 6-24 6 Creatinine 0.90 mg/dL 0.50-1.40 6 One Over Creatinine 1.10 6 BUN/Creatinine Ratio 15.6 8-20 6 Calcium 9.6 mg/dL 8.1-9.9 6, 16 Total Protein 6.6 GM/DL 6.2-8.1 6 Albumin 3.8 GM/DL 3.2-5.2 6 Globulin 2.8 GM/DL 2-4 6 Albumin/Globulin Ratio 1.4 1-3 6 Bilirubin Total 0.8 mg/dL 0.4-1.5 6 Alkaline Phosphatase 90 U/L 30-110 6 Alt (SGPT) 19 U/L 14-54 6 Ast (Sgot) 21 U/L 12-42 6 Lipid Profile (Trig/Chol/HDL) 05/15/2008 Triglyceride 276 mg/dL High 40- 200 6 Cholesterol 179 mg/dL Less Than 200 6, 17 High Density Lipoprotein 36 mg/dL Low 40-60 6, 18 Cholesterol/HDL Ratio 4.97 AVERAGE High 1-4.44 6 Low Density Lipoprotein 88 mg/dL Less Than 100 6, 19 Laboratory test finding 05/15/2008 CPK (Creatine Kinase) 101 U/L 0-170 6 Lipid Profile 01/28/2008 Triglyceride 301 mg/dL High 40-200 (Trig/Chol/HDL) Cholesterol 247 mg/dL High Less Than 200 20 High Density Lipoprotein 37 mg/dL Low 40-60 21 Cholesterol/HDL Ratio 6.68 AVERAGE High 1-4.44 Low Density Lipoprotein 150 mg/dL High Less Than 100 22 Laboratory test finding 01/28/2008 TSH 3.65 MIU/ML 0.34-5.60 Ict Hemoccult (Fma) 01/23/2008 Ict Hemoccult (1) NEG Ict Hemoccult-(2) NEG Ict-Hemoccult (3) NEG Body Fluid Smear 09/30/2007 Body Fluid Smear NOS^NO ORGANISMS 23, 24 <SEE NOTE> Laboratory test 09/30/2007 Body Fluid Cult PRELIMINARY: NO 23, 25 finding Sens <SEE NOTE> Acid Fast Culture 09/24/2007 Acid Fast Culture Culture, Mycobac 26 <SEE NOTE> Basic Metabolic Panel 09/22/2007 Sodium 135 mmol/L 135-145 Stat Potassium 3.6 mmol/L 3.5-5.0 Chloride 100 mmol/L Low 101-111 Co2 (Carbon Dioxide) 27.0 mmol/L 22-32 Anion Gap 8.0 mmol/L 2-11 27 Glucose 130 mg/dL High 70-105 BUN 12 mg/dL 6-24 Creatinine 0.7 mg/dL 0.5-1.4 One Over Creatinine 1.42 BUN/Creatinine Ratio 17.1 8-20 Calcium 8.1 mg/dL 8.1-9.9 28 Laboratory test finding 09/22/2007 Troponin-I (TnI) 0.02 NG/ML 0-0.06 29 CBC With Manual Diff Stat 09/22/2007 White Blood Count 17.3 CUMM High 4.8- 10.8 Red Cell Count 4.39 CUMM 4.2-5.4 Hemoglobin 13.7 g/dL 12.0-16.0 Hematocrit 39 % 35-47 Mean Corpuscular Volume 89 um3 79-97 Mean Corpuscular Hemoglob 31 pg 27-31 Mean Corpuscular HGB Cone 35 g/dL 32-36 Redcell Distribution WDTH 14 % 10.5-15 Platelet Count 371 CUMM 150-450 Mean Platelet Volume 7.6 um3 7.4-10.4 Polysegmented Neutrophil 87 % High 38-83 Lymphocyte 6 % 5-47 Monocyte 7 % 0-13 Absolute Neutrophil Count 15.0 RBC Morphology NORMAL Protime 09/22/2007 Protime 12.4 10.9-13.3 Inr 1.05 30 Laboratory test finding 09/22/2007 PTT (Aptt) 67.2 High 20.1-28.2 31 Protime Stat 09/18/2007 Protime 11.6 10.9-13.3 Inr 0.92 32 Laboratory test finding 09/18/2007 PTT (Aptt) Stat 24.2 20.1-28.2 33 CBC With Manual Diff 09/18/2007 White Blood Count 15.1 CUMM High 4.8-10.8 Red Cell Count 4.27 CUMM 4.2-5.4 Hemoglobin 13.3 g/dL 12.0-16.0 Hematocrit 38 % 35-47 Mean Corpuscular Volume 89 um3 79-97 Mean Corpuscular Hemoglob 31 pg 27-31 Mean Corpuscular HGB Cone 35 g/dL 32-36 Redcell Distribution WDTH 13 % 10.5-15 Platelet Count 299 CUMM 150-450 Mean Platelet Volume 8.0 um3 7.4-10.4 Polysegmented Neutrophil 85 % High 38-83 Lymphocyte 14 % 5-47 Eosenophil 1 % 0-6 Absolute Neutrophil Count 12.8 RBC Morphology NORMAL Comp Stat 09/18/2007 Sodium 136 mmol/L 135-145 Potassium 3.3 mmol/L Low 3.5-5.0 Chloride 103 mmol/L 101-111 Co2 (Carbon Dioxide) 27.0 mmol/L 22-32 Anion Gap 6.0 mmol/L 2-11 34 Glucose 159 mg/dL High 70-105 BUN 8 mg/dL 6-24 Creatinine 0.8 mg/dL 0.5-1.4 One Over Creatinine 1.25 BUN/Creatinine Ratio 10.0 8-20 Calcium 8.4 mg/dL 8.1-9.9 35 Total Protein 6.4 GM/DL 6.2-8.1 Albumin 3.3 GM/DL 3.2-5.2 Globulin 3.1 GM/DL 2-4 Albumin/Globulin Ratio 1.1 1-3 Bilirubin Total 0.7 mg/dL 0.4-1.5 Alkaline Phosphatase 93 U/L 30-110 Alt (SGPT) 21 U/L 14-54 Ast (Sgot) 18 U/L 12-42 Laboratory test finding 09/18/2007 Troponin-I (TnI) 0.02 NG/ML 0-0.06 36 Blood Culture 09/18/2007 Blood Culture NG5 37 Throat-Beta Strept 03/09/2007 Throat-Beta Strep Culture NGNBS 38 Laboratory test finding 07/31/2006 CPK (Creatine Kinase) 71 U/L 0-170 Magnesium 2.0 mg/dL 1.7-2.6 Comp Metabolic Panel 07/31/2006 One Over Creatinine 1.11 Anion Gap 6.0 mmol/L 2-11 39 Albumin/Globulin Ratio 1.4 1-3 Albumin 4.0 GM/DL 3.2-5.2 Alkaline Phosphatase 97 U/L 30-110 Alt (SGPT) 15 U/L 14-54 Ast (Sgot) 18 U/L 12-42 BUN 14 mg/dL 6-24 Calcium 9.2 mg/dL 8.7-10.2 Chloride 102 mmol/L 101-111 Co2 (Carbon Dioxide) 31.0 mmol/L 22-32 Globulin 2.9 GM/DL 2-4 Glucose 92 mg/dL 70-105 Potassium 4.3 mmol/L 3.5-5.0 Sodium 139 mmol/L 135-145 Bilirubin Total 0.4 mg/dL 0.4-1.5 Total Protein 6.9 GM/DL 6.2-8.1 BUN/Creatinine Ratio 15.6 8-20 Creatinine 0.9 mg/dL 0.5-1.4 CBC With Manual Diff 07/31/2006 RBC Morphology NORMAL White Blood Count 11.0 CUMM High 4.8-10.8 Absolute Neutrophil Count 8.3 Hematocrit 41 % 35-47 Hemoglobin 14.2 g/dL 12.0-16.0 Lymphocyte 18 % 5-47 Mean Corpuscular HGB Cone 35 g/dL 32-36 Mean Corpuscular Hemoglob 32 pg High 27-31 Mean Corpuscular Volume 90 um3 79-97 Monocyte 6 % 0-13 Mean Platelet Volume 9.2 um3 7.4-10.4 Platelet Count 278 CUMM 150-450 Polysegmented Neutrophil 76 % 38-83 Red Cell Count 4.49 CUMM 4.2-5.4 Redcell Distribution WDTH 14 % 10.5-15 Laboratory test finding 07/30/2006 [facility] [place] See Image Report Ict Hemoccult ([facility]ma) 07/06/2006 Ict Hemoccult (1) NEG Ict Hemoccult-(2) NEG Ict-Hemoccult (3) NEG CBC With Electronic Diff 06/25/2006 White Blood Count 8.1 CUMM 4.8-10.8 Abs Basophils 0 0-0.2 Abs Eosinophils 0 0-0.6 Absolute Neutrophil Count 5.5 1.5-7.7 Abs Lymphs 2.2 1.0-4.8 Abs Mononuclear 0.5 0-0.8 Basophil % 0.4 % 0-2 Hematocrit 43 % 35-47 Hemoglobin 14.7 g/dL 12.0-16.0 Eosinophil % 0 % 0-6 Gran % 67.4 % 38-83 Lymph % 26.6 % 20-45 Mean Corpuscular HGB Cone 35 g/dL 32-36 Mean Corpuscular Hemoglob 31 pg 27-31 Mean Corpuscular Volume 90 um3 79-97 Mean Platelet Volume 8.3 um3 7.4-10.4 Mononuclear % 5.6 % 1-9 Platelet Count 312 CUMM 150-450 Red Cell Count 4.74 CUMM 4.2-5.4 Redcell Distribution WDTH 14 % 10.5-15 Comp Metabolic Panel 06/25/2006 One Over Creatinine 1.42 Anion Gap 8.0 mmol/L 2-11 40 Albumin/Globulin Ratio 1.4 1-3 Albumin 4.0 GM/DL 3.2-5.2 Alkaline Phosphatase 102 U/L 30-110 Alt (SGPT) 16 U/L 14-54 Ast (Sgot) 19 U/L 12-42 BUN 12 mg/dL 6-24 Calcium 9.4 mg/dL 8.7-10.2 Chloride 99 mmol/L Low 101-111 Co2 (Carbon Dioxide) 29.0 mmol/L 22-32 Globulin 2.8 GM/DL 2-4 Glucose 85 mg/dL 70-105 Potassium 4.2 mmol/L 3.5-5.0 Sodium 136 mmol/L 135-145 Bilirubin Total 0.7 mg/dL 0.4-1.5 Total Protein 6.8 GM/DL 6.2-8.1 BUN/Creatinine Ratio 17.1 8-20 Creatinine 0.7 mg/dL 0.5-1.4 Lipid Profile 06/25/2006 Cholesterol/HDL Ratio 8.09 AVERAGE High 1-4.44 (Trig/Chol/HDL) Cholesterol 259 mg/dL High Less Than 200 41 Triglyceride 301 mg/dL High 40-200 High Density Lipoprotein 32 mg/dL Low 40-60 42 Low Density Lipoprotein 167 mg/dL High Less Than 100 43 Laboratory test finding 06/25/2006 TSH 2.83 MIU/ML 0.34-5.60 Occult Blood (3) 05/08/2005 Occult Blood #1 NEGATIVE 04/12/05 Occult Blood #2 NEGATIVE 04/13/05 Occult Blood #3 NEGATIVE 04/14/15 Basic Metabolic (a) 04/11/2005 Glucose, Serum (Fma/CMC/CTX) 91 mg/dL 70 -105 BUN (Fma/CMC/Centrex) 19 mg/dL 6-26 Creatinine (Fma/CMC/CTX) 0.9 mg/dL 0.6-1.4 BUN/Creatinin Ratio 20.8 8.0-36 Sodium 139 134-149 Potassium 4.0 3.6-5.5 Chloride 97 mEq/L 94-112 Co2 28 21-32 Calcium (Fma/CMC/Centrex) 10.1 mg/dL 8.6-10.2 Lipid Profile ([facility]) Female 04/11/2005 Cholesterol 283 mg/dL High 120-200 Triglyceride 440 mg/dL High 30-200 HDL-Chol 35 mg/dL 30-85 LDL, Calculated ([facility] [place] INVALID CALC 0-129 LDL Direct (/[facility] [place]) 162 mg/dL High 0-130 VLDL 88 High 0-50 HDL Risk Factor (a) 8.0 CALC High 4.2-7.0 CBC Electronic ([facility]) 04/11/2005 WBC 8.6 3.6-9.6 Lymphocytes 27.3 % 20.5 - 51.1 Monocytes 4.8 % 1.7-9.3 Granulocytes 67.9 % 42.2 - 75.2 Lymphocytes 2.3 10^3/uL 0.7 - 4.9 Monocytes 0.4 10^3/uL 0.1 - 0.9 Granulocytes 5.8 10^3/uL 1.5 - 7.2 RBC 4.88 3.90-5.70 Hemoglobin (a/CMC/CTX) 15.6 g/dL 12.1 - 17.2 Hematocrit (a/CMC/CTX) 44.5 % 36.1 - 50.3 Mean Corpuscular Vol 91.1 82.2-97.4 Mean Corpuscular Hemaglobin 31.9 27.6-33.3 Mean Corpuscular Hemo Concen 35.0 33.0-36.0 RDW 13.0 11.6-13.7 Platelets 296. 10^3/ul 150-400 Mean Platelet Volume 7.7 7.4-10.4 Ua - Micro ([facility] [place]) 04/11/2005 Appearance CLEAR Color LT YELLOW Glucose NEG Bilirubin NEG Ketones NEG SP Grav <=1.005 Blood TRACE-LYSED PH 5.0 Protein, Random Urine NEG Urobil 0.2 Nitrite NEG Leukocytes NEG Hyaline - /Lpf Granular - /Lpf WBC, Fluid 4-6 RBC, Fluid 1-2 Mucus - /Lpf Epith FEW /Lpf Bacteria TRACE /Hpf Amorphous - /Lpf Crystals - /Lpf Z#Comments - Stool For Occult Blood X 3 06/21/2004 Occult Blood #1 NEG 06/06/04 Occult Blood #2 NEG 06/07/04 Occult Blood #3 NEG 06/08/04 Basic Metabolic (a) 06/06/2004 Glucose, Serum (a/CMC/CTX) 86 mg/dL 70 -105 BUN (a/[facility] [place] 17 mg/dL 6-26 Creatinine (a/CMC/CTX) 0.8 mg/dL 0.6-1.4 BUN/Creatinin Ratio 21.2 8.0-36 Sodium 144 134-149 Potassium 4.9 3.6-5.5 Chloride 101 mEq/L 94-112 Co2 29 21-32 Calcium (a/CMC/Centrex) 9.9 mg/dL 8.6-10.2 Lipid Profile ([facility]) Female 06/06/2004 Cholesterol 230 mg/dL High 120-200 Triglyceride 369 mg/dL High 30-200 HDL-Chol 30 mg/dL 30-85 LDL, Calculated ([facility] [place] INVALID CALC 0-129 LDL, Direct 138 mg/dL High 0-130 VLDL 74 High 0-50 HDL Risk Factor ([facility]) 7.6 CALC High 4.2-7.0 Laboratory test 06/06/2004 Ast (Sgot) ([facility] [place] 19 U/mL 5-34 finding Lipid Profile [place] [place] 02/28/2004 Triglyceride 213 mg/dL High 40-200 Cholesterol (a/[facility] [place] 213 mg/dL High <200 HDL-Chol 38 Low 40-60 Cholesterol / HDL Ratio 5.61 AVG High 1-4.44 LDL, Calculated ([facility] [place] 132 High <100 Laboratory test finding 02/28/2004 Ast (Sgot) ([facility] [place] 23 12-42 CK 94 0-170 Basic Metabolic ([facility]) 10/13/2003 Glucose, Serum (a/[facility]) 94 mg/dL 70 -118 BUN (a[place] [place] 17 mg/dL 6-26 Creatinine (a/[facility]) 0.9 mg/dL 0.6-1.4 BUN/Creatinin Ratio 18.2 8.0-36 Sodium 148 134-149 Potassium 4.4 3.6-5.5 Chloride 106 mEq/L 94-112 Co2 28 21-32 Calcium (a/[facility]) 9.9 mg/dL 8.6-10.2 Lipid Profile ([facility]) Female 10/13/2003 Cholesterol 248 mg/dL High 120-200 Triglyceride 314 mg/dL High 30-200 HDL-Chol 44 mg/dL 30-85 LDL, Calculated ([facility] [place] INVALID CALC 0-129 LDL, Direct 184 mg/dL High 0-130 VLDL 63 High 0-50 HDL Risk Factor (a) 5.7 CALC 4.2-7.0 Laboratory test finding 10/13/2003 TSH (a/[facility]) 2.21 uIU/ml 0.5- 6.0 CBC Electronic ([facility]) 10/13/2003 WBC 7.2 3.6-9.6 Lymphocytes 27.6 % 20.5 - 51.1 Monocytes 2.3 % 1.7-9.3 Granulocytes 70.1 % 42.2 - 75.2 Lymphocytes 2.0 10^3/uL 0.7 - 4.9 Monocytes 0.2 10^3/uL 0.1 - 0.9 Granulocytes 5.0 10^3/uL 1.5 - 7.2 RBC 4.63 3.90-5.70 Hemoglobin (a/[facility]) 15.0 g/dL 12.1 - 17.2 Hematocrit (a/[facility]) 42.9 % 36.1 - 50.3 Mean Corpuscular Vol 92.6 82.2-97.4 Mean Corpuscular Hemaglobin 32.3 27.6-33.3 Mean Corpuscular Hemo Concen 34.9 33.0-35.5 RDW 13.0 11.6-13.7 Platelets 259. 10^3/ul 150-400 Mean Platelet Volume 8.0 7.4-10.4 Type And Screen [place] [place] 05/19/2003 Patient Abo, RH O POSITIVE Antibody Screen NEGATIVE Negative Spec Discarded On 06/02/03 Electrolyte Panel [place] [place] 05/19/2003 Sodium 139 mmol/L 135-145 Potassium 4.5 mmol/L 3.5-5.0 Chloride 103 mmol/L 101-111 Co2 29.0 mmol/L 22-32 Anion Gap 7.0 mmol/L 2-11 Glucose, Serum (a/[facility]) 99 mg/dL 70-105 BUN (a/[facility]) 15 mg/dL 6-24 Creatinine ([facility]) 0.8 mg/dL 0.5-1.4 PT/Inr ([facility]) 05/19/2003 PT--Therapy ([facility]) 11.1 SEC 10.7- 13.1 Inr 0.86 44 Laboratory test finding 05/19/2003 Aptt 30.4 SEC 20.6-31.5 CBC Electronic [place] [place] 05/19/2003 WBC 7.4 CUMM 4.8-10.8 RBC 4.64 CUMM 4.2-5.4 Hemoglobin (a[place] [place] 14.6 g/dL 12.0-16.0 Hematocrit ([facility] [place] 43 % 35-47 Mean Corpuscular Vol 92 UM3 79-97 Mean Corpuscular Hemaglobin 32 pg High 27-31 Mean Corpuscular Hemo Concen 34 g/dL 32-36 RDW 13 10.5-15 Platelets 277 CUMM 150-450 Mean Platelet Volume 7.7 7.4-10.4 Granulocytes 64.3 % 38-83 Lymphocytes 26.7 % 20-45 Monocytes 6.3 % 1-9 Eosinophil 1.9 0-6 Basophil% 0.8 0-2 Abs Lymphs 2.0 1.0-4.8 Abs Mononuclear 0.5 0-0.8 Abs Grans 4.7 1.5-7.7 Abs Eosinophils 0.1 0-0.6 Abs Basophils 0.1 0-0.2 Stool For Occult Blood X 3 ( 04/17/2003 Occult Blood #1 04/12/03 NEGATIVE Occult Blood #2 04/13/03 NEGATIVE Occult Blood #3 04/14/03 NEGATIVE Lipid Profile [place] [place] 04/12/2003 Triglyceride 287 mg/dL High 40-200 Cholesterol ([facility] [place] 243 mg/dL High <200 HDL-Chol 35 Low 40-60 Cholesterol / HDL Ratio 6.94 AVG High 1-4.44 LDL, Calculated ([facility] [place] 151 High <100 Laboratory test finding 03/30/2003 Throat - Beta Strep NEGATIVE Final Lipid Profile [place] [place] 09/12/2002 Triglyceride 214 mg/dL High 40-200 Cholesterol ([facility] [place] 219 mg/dL High <200 HDL-Chol 38 Low 40-60 Cholesterol / HDL Ratio 5.76 AVG High 1-4.44 LDL, Calculated ([facility] [place] 138 High <100 Occult Blood (3) 04/04/2002 Occult Blood #1 NEGATIVE 03-22-02 Occult Blood #2 NEGATIVE 03-22-02 Occult Blood #3 NEGATIVE 1-28-03 Ua - Micro ([facility]) 03/21/2002 Appearance CLOUDY/LT YELLOW Glucose NEG Bilirubin NEG Ketones NEG SP Grav <=1.005 Blood TRACE-INTACT PH 5.0 Protein NEG Urobil 0.2 Nitrite NEG Leukocytes NEG Hyaline - /Lpf Granular - /Lpf WBC'S 0-2 RBC'S 0-1 Mucus - /Lpf Epith OCC Bacteria TRACE Amorphous - /Lpf Crystals - /Lpf Comments - Comp Metabolic ([facility]) 03/21/2002 Glucose, Serum (a/CMC/CTX) 100 mg/dL 70 - 105 BUN ([facility] [place] 14 mg/dL 7-26 Creatinine ([facility] [place] 0.7 mg/dL 0.6-1.4 BUN/Creatinin Ratio 19.3 8.0-36 Sodium 145 134-149 Potassium 5.3 3.6-5.5 Chloride 99 mEq/L 94-112 Co2 25 21-32 Calcium (a/[facility]) 9.4 mg/dL 8.6-10.0 Total Protein 8.0 g/dL 6.3-8.1 Albumin ([facility]) 4.4 3.8-5.5 Globulin 3.5 2.0-4.8 A/G Ratio (a/CMC/[facility]) 1.3 0.6-2.2 Alkaline Phosphatase 77 U/L 42-98 Alt (SGPT) 16 10-40 Ast (Sgot) (a/CMC/[facility]) 21 U/mL 5-34 Bilirubin, Total 0.6 mg/dL 0.2-1.3 CBC Electronic ([facility]) 03/21/2002 WBC 9.0 3.6-9.6 Lymphocytes 19.1 % Low 20.5 - 51.1 Monocytes 2.4 % 1.7-9.3 Granulocytes 78.5 % High 42.2 - 75.2 Lymphocytes 1.7 10^3/uL 0.7 - 4.9 Monocytes 0.2 10^3/uL 0.1 - 0.9 Granulocytes 7.1 10^3/uL 1.5 - 7.2 RBC 4.87 3.90-5.70 Hemoglobin (a/CMC/CTX) 15.9 g/dL 12.1 - 17.2 Hematocrit (a/CMC/CTX) 45.6 % 36.1 - 50.3 Mean Corpuscular Vol 93.6 82.2-97.4 Mean Corpuscular Hemaglobin 32.7 27.6-33.3 Mean Corpuscular Hemo Concen 34.9 High 33.0-34.8 RDW 13.1 11.6-13.7 Platelets 274 10^3/ul 150-400 Mean Platelet Volume 9.1 7.4-10.4 Ua - Micro ([facility]) 02/15/2002 Appearance CLEAR YELLOW Glucose NEGATIVE Bilirubin NEGATIVE Ketones NEGATIVE SP Grav <=1.005 Blood TRACE-INTACT PH 6.5 Protein NEGATIVE Urobil 0.2 Nitrite NEGATIVE Leukocytes NEGATIVE Hyaline - /Lpf Granular - /Lpf WBC'S 0-1 RBC'S - Mucus - /Lpf Epith MANY Bacteria - Amorphous - /Lpf Crystals - /Lpf Comments - Lipid Profile ([facility]) 10/24/2001 Cholesterol 239 mg/dL High 140-200 Triglyceride 324 mg/dL High 30-150 VLDL 65 High 0-50 LDL-Calculated INVALID 0-160 HDL-Chol 38 35-85 Laboratory test finding 10/24/2001 LDL, Direct 145.1 mg/dL High 0-130 Laboratory test finding 06/24/2001 Clotest NEGATIVE Negative CBC Electronic [place] [place] 05/09/2001 WBC 6.7 4.8-10.8 RBC 4.82 4.2-5.4 Hemoglobin 15.0 g/dL 12.0-16.0 Hematocrit 44 % 35-47 Mean Corpuscular Vol 92 79-97 Mean Corpuscular Hemaglobin 31 27-31 Mean Corpuscular Hemo Concen 34 32-36 RDW 13 10.5-15 Platelets 256 CUMM 150-450 Mean Platelet Volume 8.4 7.4-10.4 Granulocytes 73.9 % 38-83 Lymphocytes 13.7 % Low 20-45 Monocytes 10.6 % High 1-9 Eosinophil 1.8 0-6 Basophil% 0 0-2 Abs Lymphs 0.9 Low 1.0-4.8 Abs Mononuclear 0.7 0-0.8 Abs Grans 5.0 1.5-7.7 Abs Eosinophils 0.1 0-0.6 Abs Basophils 0 0-0.2 Comp+Lipid [place] [place] 05/09/2001 Sodium 140 mmol/L 135-145 Potassium 4.8 3.5-5.0 Chloride 100 mmol/L 95-108 Co2 26.3 21-33 Glucose 79 mg/dL 70-105 BUN 12 6-22 Creatinine 0.8 mg/dL 0.5-1.4 BUN/Creatinin Ratio 15.0 8-20 Calcium 10.0 mg/dL 8.7-10.2 Total Protein 7.3 GM/DL 6.2-8.1 Albumin 4.4 3.6-5.4 Globulin 2.9 2-4 A/G Ratio 1.5 0.9-2 Total Bilirubin 0.3 mg/dL 0.1-1.0 Triglyceride 285 mg/dL High 40-200 Cholesterol 240 mg/dL High <200 HDL-Chol 41 40-60 Cholesterol / HDL Ratio 5.85 AVG High 1-4.97 LDL-Calculated 142 High <100 Alkaline Phosphatase 96 U/L 30-110 Alt (SGPT) 22 1-40 Ast ([facility]) 16 1-34 Occult Blood (3) 05/09/2001 Occult Blood #1 NEG 05/01/01 Occult Blood #2 NEG 05/02/01 Occult Blood #3 NEG 05/03/01 1 SEE RESULT BELOW Name: HILLARY IBANEZ I : [address]: Lavern Canales MD Acct: [id number] Unit: [id number] AGE: 71 Location: PAT Re07/25/16 SEX: F Status: REG REF SPEC: [id number] KOLBY: 07/25/[address] [facility] [address]: Lavern Canales MD REQ: [id number] RECD: 07/25/16 STATUS: AMOR SERRANO DR: Juan Blum MD _ SOURCE: URINE SPDESC: ORDERED: Urine Culture QUERIES: Urine Source: Clean Catch Procedure Result Reported Site Urine Culture Final 07/26/16- 1304 ML No growth of clinically significant organisms * ML - MAIN LAB (PSC1) . END OF REPORT * ML=Testing performed at Main Lab DEPARTMENT OF PATHOLOGY, [address] [place] [address] Vidal Gayle M.D. Director [facility] # [id number] 2 PRE-WARM NEG 3 Because ethnic data is not always readily available, this report includes an eGFR for both -Americans and non- Americans. The National Kidney Disease Education Program (NKDEP) does not endorse the use of the MDRD equation for patients that are not between the ages of 18 and 70, are , have extremes of body size, muscle mass, or nutritional status, or are non- or non-. According to the National Kidney Foundation, irrespective of diagnosis, the stage of the disease is based on the level of kidney function: Stage Description GFR(mL/min/1.73 m(2)) 1 Kidney damage with normal or decreased GFR 90 2 Kidney damage with mild decrease in GFR 60-89 3 Moderate decrease in GFR 30-59 4 Severe decrease in GFR 15-29 5 Kidney failure <15 (or dialysis) 4 RESULTS VERIFIED BY REPEAT ANALYSIS 5 invalid 6 FASTING 7 Anion gap measurement may be of limited value in the presence of any alkalosis, especially in a combined acid base disorder. . 8 A metabolite of Naproxen, O-desmethylnaproxen, has been shown to interfere with the [place] method for measuring total bilirubin. Samples from patients who have taken Naproxen have shown spurious elevation in total bilirubin levels. 9 Because ethnic data is not always readily available, this report includes an eGFR for both -Americans and non- Americans. The National Kidney Disease Education Program (NKDEP) does not endorse the use of the MDRD equation for patients that are not between the ages of 18 and 70, are , have extremes of body size, muscle mass, or nutritional status, or are non- or non-. According to the National Kidney Foundation, irrespective of diagnosis, the stage of the disease is based on the level of kidney function: Stage Description GFR(mL/min/1.73 m(2)) 1 Kidney damage with normal or decreased GFR 90 2 Kidney damage with mild decrease in GFR 60-89 3 Moderate decrease in GFR 30-59 4 Severe decrease in GFR 15-29 5 Kidney failure <15 (or dialysis) 10 CHOLESTEROL INTERPRETATION: Desirable: Less than 200 MG/DL Borderline-High Risk: 200-239 MG/DL High-Risk: 240 MG/DL and over 11 HDL INTERPRETATION: Undesirable: High Risk: Less than 40 MG/DL Desirable: Low Risk: Greater than 60 MG/DL 12 LDL INTERPRETATION: Low Risk Optimal Level: LDL Less than 100 MG/DL Near or Above Optimal: LDL 100-129 MG/DL Borderline High Risk: LDL 130-159 MG/DL High Risk: LDL 160-189 MG/DL Very High Risk: LDL Greater than 189 MG/DL 13 RESULT KYLIE'D 14 Anion gap measurement may be of limited value in the presence of any alkalosis, especially in a combined acid base disorder. . 15 Note change in reference range as of 10/14/07. The change was based on recommendations from the [place] [employer]. 16 Please note change in reference range effective 07 . 17 CHOLESTEROL INTERPRETATION: Desirable: Less than 200 MG/DL Borderline-High Risk: 200-239 MG/DL High-Risk: 240 MG/DL and over 18 HDL INTERPRETATION: Undesirable: High Risk: Less than 40 MG/DL Desirable: Low Risk: Greater than 60 MG/DL 19 LDL INTERPRETATION: Low Risk Optimal Level: LDL Less than 100 MG/DL Near or Above Optimal: LDL 100-129 MG/DL Borderline High Risk: LDL 130-159 MG/DL High Risk: LDL 160-189 MG/DL Very High Risk: LDL Greater than 189 MG/DL 20 CHOLESTEROL INTERPRETATION: Desirable: Less than 200 MG/DL Borderline-High Risk: 200-239 MG/DL High-Risk: 240 MG/DL and over 21 HDL INTERPRETATION: Undesirable: High Risk: Less than 40 MG/DL Desirable: Low Risk: Greater than 60 MG/DL 22 LDL INTERPRETATION: Low Risk Optimal Level: LDL Less than 100 MG/DL Near or Above Optimal: LDL 100-129 MG/DL Borderline High Risk: LDL 130-159 MG/DL High Risk: LDL 160-189 MG/DL Very High Risk: LDL Greater than 189 MG/DL 23 SPECIMEN NEEDED FOR CYTOLOGY ALSO. 24 NOS^NO ORGANISMS SEEN^SM BCS^BY CYTOSPIN SMEAR^SM M^MANY^WBC 25 PRELIMINARY: NO GROWTH DAY 3 26 Culture, Mycobacterium No growth after 60 days Test performed by: [facility] [address] [id number] 27 Anion gap measurement may be of limited value in the presence of any alkalosis, especially in a combined acid base disorder. . 28 Please note change in reference range effective 07 . 29 New Reference Range and Interpretation effective 11/26/01 TnI (ng/ml) INTERPRETATION <0.06 ng/ml NOT SUPPORTIVE OF DIAGNOSIS OF [place] 0.06 - 0.50 ng/ml INDETERMINATE: SUGGEST SERIAL STUDIES IF CLINICALLY INDICATED. > 0.5 ng/ml CONSISTENT WITH DIAGNOSIS OF [place] . 30 ELIZ VALUE=2.01 ( OF 01/29/07 Recommended INR for Patients on Oral Anticoagulants Prophylaxis 2.0 - 3.0 Treatment of thrombosis 2.0 - 3.0 Prevention of embolism 2.0 - 3.0 Prevention of embolism from prosthetic heart valves 2.5 - 3.5 31 PLEASE NOTE NEW REFERENCE RANGE EFFECTIVE 07. 32 ELIZ VALUE=2.01 ( OF 01/29/07 Recommended INR for Patients on Oral Anticoagulants Prophylaxis 2.0 - 3.0 Treatment of thrombosis 2.0 - 3.0 Prevention of embolism 2.0 - 3.0 Prevention of embolism from prosthetic heart valves 2.5 - 3.5 33 PLEASE NOTE NEW REFERENCE RANGE EFFECTIVE 07. 34 Anion gap measurement may be of limited value in the presence of any alkalosis, especially in a combined acid base disorder. . 35 Please note change in reference range effective 07 . 36 New Reference Range and Interpretation effective 11/26/01 TnI (ng/ml) INTERPRETATION <0.06 ng/ml NOT SUPPORTIVE OF DIAGNOSIS OF [place] 0.06 - 0.50 ng/ml INDETERMINATE: SUGGEST SERIAL STUDIES IF CLINICALLY INDICATED. > 0.5 ng/ml CONSISTENT WITH DIAGNOSIS OF [place] . 37 NO GROWTH AFTER 5 DAYS 38 NEGATIVE FOR GROUP A STREP 39 Anion gap measurement may be of limited value in the presence of any alkalosis, especially in a combined acid base disorder. . 40 Anion gap measurement may be of limited value in the presence of any alkalosis, especially in a combined acid base disorder. . 41 Classification: High . 42 Classification: Low . 43 CALCULATED LDL APPROXIMATES THE VALUE OF A DIRECT LDL MEASUREMENT. Classification: High . 44 RECOMMENDED INR FOR PATIENTS ON ORAL ANTICOAGULANTS PROPHYLAXIS: 2.0-3.0 TREATMENT OF THROMBOSIS 2.0-3.0 PREVENTION OF EMBOLISM 2.0-3.0 PREVENTION OF EMBOLISM FROM PROSTHETIC HEART VALVES 2.5-3.5 Procedures Date CPT Code Description Status 02/28/2018 Bone Mineral Density Test Completed 02/23/2018 Mammogram Completed 07/24/2016 14706 Electrocardiogram Complete Completed 06/11/2016 Mammogram Completed 01/09/2015 Mammogram Completed 09/30/2013 Mammogram Completed 05/16/2011 Mammogram Completed 12/14/2008 Mammogram Completed 10/29/2007 Mammogram Completed 02/04/2002 12388 Electrocardiogram Complete Completed 04/22/2001 51304 Electrocardiogram Complete Completed Encounters Type Date Location Provider CPT E/M Dx Office Visit 07/24/2016 3:40p Main Office Juan Blum M.D. 39495 M25.551 I10 E78.4 F32.89 K21.9 Z01.818 E78.1 Office Visit 06/02/2016 10:20a [facility] Juan Blum M.D. 57830 E78.4 I10 M54.5 E78.1 Office Visit 01/01/2015 11:00a [facility] Juan Blum M.D. 47173 E78.4 K21.9 E66.8 F32.8 Z86.010 C44.611 Z23 Office Visit 09/27/2013 7:40p Main Office Juan Blum M.D. 95302 719.41 729.81 530.81 Office Visit 11/17/2011 8:40a [facility] Juan Blum M.D. 04639 272.4 311 724.5 530.81 272.1 Office Visit 05/09/2011 10:40a [facility] Juan Blum M.D. 05962 272.4 311 724.5 V76.41 272.1 Office Visit 09/05/2010 8:00a Main Office Juan Blum M.D. 13095 272.4 311 724.5 V76.41 401.1 Office Visit 03/14/2010 1:40p Main Office Juan Blum M.D. 93645 527.2 Office Visit 03/08/2010 11:00a [facility] Juan Blum M.D. 06222 466.0 311 272.4 729.5 Office Visit 08/09/2009 8:00a Main Office Juan Blum M.D. 92173 311 272.4 V76.41 782.3 278.00 791.7 272.1 Office Visit 01/30/2009 8:00a Main Office Juan Blum M.D. 55740 496 V12.72 311 272.4 729.5 443.9 Office Visit 01/10/2009 1:00p Main Office Vincent Gupta-C 00068 372.00 Office Visit 11/02/2008 8:00a Main Office Juan Blum M.D. 58758 272.4 311 401.9 Office Visit 05/11/2008 1:20p Main Office Juan Blum M.D. 01549 V12.72 V06.5 311 272.4 496 Office Visit 01/07/2008 11:00a Main Office Juan Blum M.D. 56567 V12.72 311 272.4 496 V03.82 Office Visit 12/02/2007 1:20p Main Office Juan Blum M.D. 28303 486 Office Visit 11/19/2007 10:10a Main Office Juan Blum M.D. 49842 486 Office Visit 10/21/2007 3:20p Main Office Juan Blum M.D. 06358 486 698.8 719.41 Office Visit 10/07/2007 1:20p Main Office uJan Blum M.D. 83381 486 305.1 Office Visit 12/15/2006 12:15p Main Office Juan Blum M.D. 28154 719.41 Office Visit 06/23/2006 12:40p Main Office Juan Blum M.D. 76216 311 305.1 272.4 V12.72 Office Visit 08/14/2005 8:00a Main Office Juan Blum M.D. 81497 272.4 311 305.1 780.79 Office Visit 04/11/2005 9:00a Main Office Juan Blum M.D. 86789 272.0 530.81 272.4 311 401.9 719.46 599.7 Office Visit 10/10/2004 8:15a Main Office Juan Blum M.D. 47271 530.81 272.4 311 305.1 Office Visit 06/06/2004 8:15a Main Office Juan Blum M.D. 85576 272.0 300.4 729.5 272.4 V58.69 Office Visit 02/08/2004 8:15a Main Office Juan Blum M.D. 27378 272.4 300.4 Office Visit 10/05/2003 8:00a Main Office Juan Blum M.D. 28574 272.4 300.4 354.2 272.0 Office Visit 06/30/2003 9:00a Main Office Juan Blum M.D. 98044 117.9 272.4 Office Visit 04/11/2003 9:15a Main Office Juan Blum M.D. 98488 354.2 627.2 300.4 Office Visit 02/20/2003 7:15p Main Office BRETT Villarreal 66886 782.0 Office Visit 09/08/2002 3:30p Main Office Juan Blum M.D. 43589 466.0 272.4 Office Visit 2002 11:20a Main Office Juan Blum M.D. 16307 V72.83 574.50 Office Visit 03/21/2002 10:00a [facility] Juan Blum M.D. 54115 789.07 575.10 724.2 300.4 Office Visit 02/28/2002 10:40a [facility] Juan Blum M.D. 99199 300.4 Office Visit 02/22/2002 3:40p Main Office Juan Blum M.D. 42208 719.41 Office Visit 02/15/2002 9:30a Main Office Vincent Kam-Jaime 53998 724.5 Office Visit 02/04/2002 10:00a Main Office Juan Blum M.D. 62532 719.41 Office Visit 12/15/2001 7:10p Main Office Arnel Hector M.D. 12955 461.1 Office Visit 10/21/2001 8:10a Main Office Juan Blum M.D. 09053 Office Visit 07/22/2001 4:20p Main Office Juan Blum M.D. 40385 Office Visit 05/21/2001 9:00a Main Office Juan Blum M.D. 41284 Office Visit 04/22/2001 3:00p [facility] Juan Blum M.D. 75024 Plan of Care Future Appointment(s):08/30/2018 10:20 am - Juan Blum M.D. at [facility] [place]1402/26/2018 - Juan Blum M.D.Z86.010 Personal history of colonic polypsComments:History of colon polyps, patient refuses a colonoscopy, we discussed Cologuard [id number] Encounter for screening for malignant neoplasm of rtresO12 Essential (primary) hypertensionNew Labs:Ict Hemoccult (Fma )Comments:continue current medication, she is going to take HCTZ daily, call if bp elevation is persistent above 140/90J44.9 Chronic obstructive pulmonary disease, unspecifiedComments:trial of Anoro IwsxujuS81.511 Pain in right shoulderComments:refer to Dr Polanco for dpkbiurjirM86.89 Other specified depressive episodesComments:she feels that venlafaxine has been very helpful and wants to continue this katxveopboU27.21 Acute sialoadenitisComments:has acute left parotitis, will start cephalexin and patient agrees to ENT consult if her symptoms dont improveAllNew Medication:Cephalexin 500 mgAnoro Ellipta 62.5-25 mcg/InhComments:Patient's blood pressure is mildly elevated today, she will try hydrochlorothiazide 12.5 mg daily she had been taking this on an as- needed basis for her peripheral edema. She will contact us with bloodpressure readings hopefully to obtain readings less than 140/90 She has some symptoms of vertigo. Noorthostasis was noted on exam. 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 Mammogram and DEXA scan were set up. Cologuard was ordered as patient declines to have a colonoscopy. She has some wheezing and shortness of breath on occasion and we will try Anoro Ellipta inhaler. Await lab work. Patient to return in 6 months
== END 2018-02-27 16:29 | disposition home or self-care (01) ==
LOC: UCCORT 15:08
DX: J44.1 Chronic obstructive pulmonary disease with (acute) exacerbation (principal); B34.9 Viral infection, unspecified; Z88.2 Allergy status to sulfonamides; Z88.8 Allergy status to other drugs, medicaments and biological substances; I10 Essential (primary) hypertension; Z87.891 Personal history of nicotine dependence
CPT/HCPCS: 93005; 96372; 99212; A9270-GY; G0463; J2930